=== PATIENT | female | born 1945 | race Caucasian/White ===

== ENCOUNTER 2018-08-14 06:53 | Inpatient (IN) | payer OTHER, MEDICARE ==
[2018-08-14] VITALS (20 sets, daily range): BP systolic 117–186; BP diastolic 59–100
[~2018-08-14] VITALS: Ht 160 cm; Wt 87.5 kg
[~2018-08-14 06:53] MED LIST: ALLP300T PO; C250T PO; CODE118S2 PO; COLC0.6T53 PO; CYAN500T44 PO; ERGO400C PO; FAMO20TA5 PO; FLUT50DI IH; GLIP5TAB13 PO; METF-380 PO; NTR.4SL SL; OMG1KC PO; PRD20T PO; SPRN25T GT
[2018-08-14] MEDS ORDERED: ALTEPLASE 100 MG/VIAL (ACTIVASE) IV ONE (07:04)
[2018-08-14 07:07] LABS: BASOPHILS % (AUTO) 0 % (0-10); EOSINOPHILS # (AUTO) 0.3 10^3/uL (0.0-0.3); EOSINOPHILS % (AUTO) 4 % (0-10); HEMATOCRIT 38 % (35-52); HEMOGLOBIN 12.7 G/DL (11.5-16.0); LYMPHOCYTES # (AUTO) 3.7 X 10^3 (1.0-4.0); LYMPHOCYTES % (AUTO) 42 % (12-44); MEAN CORPUSCULAR HEMOGLOBIN 30 PG (25-34); MEAN CORPUSCULAR HGB CONC 34 G/DL (32-36); MEAN CORPUSCULAR VOLUME 91 FL (80-99); MEAN PLATELET VOLUME 9.5 FL (7.4-10.4); MONOCYTES # (AUTO) 0.5 X 10^3 (0.0-1.0); MONOCYTES % (AUTO) 5 % (0-12); NEUTROPHILS # (AUTO) 4.4 X 10^3 (1.8-7.8); NEUTROPHILS % (AUTO) 49 % (42-75); PLATELET COUNT 208 10^3/uL (130-400); RED BLOOD COUNT 4.19 10^6/uL (4.35-5.85); RED CELL DISTRIBUTION WIDTH 14.1 % (10.0-14.5)
[2018-08-14 07:21] LABS: FIBRIN DEGRADATION PRODUCTS 0.29 UG/ML (0.00-0.49); INR 0.9 (0.8-1.4)
[2018-08-14] MEDS ORDERED: NS IV 1000 ML 1,000 ML IV ONE (07:21)
[2018-08-14 07:24] LABS: ALANINE AMINOTRANSFERASE 15 U/L (0-55); ALBUMIN 4.3 GM/DL (3.2-4.5); ALKALINE PHOSPHATASE 103 U/L (40-136); BILIRUBIN,TOTAL 0.6 MG/DL (0.1-1.0); BUN/CREATININE RATIO 14; CALCIUM 9.6 MG/DL (8.5-10.1); CARBON DIOXIDE 19 MMOL/L (21-32); CHLORIDE 105 MMOL/L (98-107); CREATININE SERUM 0.97 MG/DL (0.60-1.30); GFR ESTIMATED 56; GLUCOSE 167 MG/DL (70-105); POTASSIUM 4.1 MMOL/L (3.6-5.0); SODIUM 140 MMOL/L (135-145); TOTAL PROTEIN 6.9 GM/DL (6.4-8.2)
--- NOTE | 2018-08-14 07:35 | Diagnostic Imaging Report ---
PROCEDURE: CT head wo r/o stroke. TECHNIQUE: Multiple contiguous axial images were obtained through the brain without the use of intravenous contrast. INDICATION: Stroke. COMPARISON: None. FINDINGS: There is loss of the fisher-white junction in the anterior left temporal lobe. No intracranial hemorrhage, mass effect, hydrocephalus or extra-axial fluid collections. Osseous structures are intact. The visualized paranasal sinuses and mastoids are clear. IMPRESSION: 1. Loss of the fisher-white junction and low-attenuation changes in the anterior left temporal lobe representing acute or subacute infarct. This could be better evaluated with MRI. 2. No intracranial hemorrhage. Findings discussed with Dr. Benjamin Christian at 7:25 AM on 08/14/2018. Dictated by: Dictated on workstation # [id number]
[2018-08-14 07:39] LABS: BILIRUBIN,URINE NEGATIVE (NEGATIVE); CLARITY,URINE CLEAR; COLOR,URINE YELLOW; GLUCOSE, URINE (UA) NEGATIVE (NEGATIVE); KETONES,URINE NEGATIVE (NEGATIVE); LEUKOCYTE ESTERASE ,URINE NEGATIVE (NEGATIVE); NITRITE,URINE NEGATIVE (NEGATIVE); PH,URINE 5 (5-9); PROTEIN,URINE 2+ (NEGATIVE); UROBILINOGEN,URINE NORMAL (NORMAL)
--- NOTE | 2018-08-14 07:46 | ED Neurological Problem ---
General Chief Complaint: Neuro-Stroke Like Symptoms Stated Complaint: STROKE SYMPTOMS Nursing Triage Note: 0653 EMS CALLED STROKE PAGED 0645 HOUSE SUP NOTIFIED 0648 RT DAVID HERE [address] 0655 EMS HERE PATIENT WAS IN KITCHEN 530 A WHEN SHE YELLED FOR FAMILY UNABEL TO MOVE R ARM SPEECH SLURRED WITH DROOP OF R SIDE MOUTH TAKEN STRAIGHT TO CT BLOOD OBTAINED BY EMS SENT TO LAB Nursing Sepsis Screen: No Definite Risk Source: patient, family, EMS Exam Limitations: physical impairment History of Present Illness Date Seen by Provider: Aug 14, 2018 Time Seen by Provider: 06:55 Initial Comments Here by EMS with report of acute onset of right sided paralysis and right facial droop at 530 this morning. EMS was called afterwards. They did note those findings. No fall associated with this and no recent trauma. Progressively worsened and speech worsened. Patient anxious. On arrival, breathing without difficulty and sent stat to CT. Patient denies recent trauma or surgeries. Denies cancer or history of stroke or head bleed. She is able to answer questions but speech is slurred. Answers appropriate including month and year. Does report recent illness including cough. Family reports that she had moderate cough overnight last night. She is usually an early riser and it is not uncommon for her to be at this early in the morning and in fact is fairly typical. Timing/Duration: 1-3 hours Severity: severe Associated Symptoms: No fever/chills, No loss of consciousness, No numbness in legs/feet, No seizures; slurred speech, trouble walking, weakness Allergies and Home Medications Allergies Coded Allergies: diphenhydramine (Unverified Allergy, Unknown, 04/25/14) Home Medications Allopurinol 300 Mg Tablet, 2 TAB PO BID, (Reported) Ascorbic Acid 250 Mg Tab, 1,000 MG PO DAILY, (Reported) Colchicine 0.6 Mg Tablet, 0.6 MG PO NEEDED, (Reported) Famotidine 20 Mg Tablet, 1 EACH PO DAILY Prescribed by: JOCELYNN HAMMONDS on 04/25/141903 Fluticasone Propionate 50 Mcg Disk.w.dev, 1 PUFF IH BID, (Reported) Glipizide 5 Mg Tablet, 1 EACH PO DAILY, (Reported) Metformin Hcl 1,000 Mg Tablet, 1 EACH PO BID WITH MEALS, (Reported) Nitroglycerin 0.4 Mg Subl, 0.4 MG SL NEEDED, (Reported) [place] 3 Polyunsat Fatty Acids 1,000 Mg Cap, 2,000 MG PO DAILY, (Reported) Prednisone 20 Mg Tab, 20 MG PO BID Prescribed by: JOCELYNN HAMMONDS on 04/25/141903 Promethazine/Codeine 120 Ml Syrup, 5 ML PO Q 4 - 6 HRS PRN, (Reported) Spironolactone 25 Mg Tab, 50 MG GT DAILY, (Reported) Patient Home Medication List Home Medication List Reviewed: Yes Review of Systems Review of Systems Constitutional: see HPI; No chills, No fever Eyes: No Symptoms Reported Ears, Nose, Mouth, Throat: denies nose discharge, denies throat pain Respiratory: cough; No short of breath Cardiovascular: No chest pain, No edema Gastrointestinal: No abdominal pain, No nausea, No vomiting Genitourinary: no symptoms reported Musculoskeletal: muscle weakness; No neck pain Skin: no symptoms reported Psychiatric/Neurological: Unable to Move Lower Ext, Unable to Move Upper Ext, Weakness All Other Systems Reviewed Negative Unless Noted: Yes Past Xallspi-Kchudr-Kyxzoy Hx Past Med/Social Hx: Reviewed Nursing Past Med/Soc Hx Patient Social History Alcohol Use: Occasionally Uses Recreational Drug Use: No Smoking Status: Never a Smoker Recent Foreign Travel: No Contact w/Someone Who Travel: No Recent Infectious Disease Expo: No Past Medical History Surgeries: Yes (BALLOON IN ARTERY, CATARACT) Respiratory: Yes Asthma Cardiac: No Neurological: No Gastrointestinal: No Musculoskeletal: No Endocrine: No Cancer: No Family Medical History Reviewed Nursing Family Hx No Pertinent Family Hx Physical Exam Vital Signs Vital Signs - First Documented 08/14/18 08/14/18 06:53 08:14 Temp 98.9 Pulse 79 Resp 18 B/P (MAP) 155/62 (93) Pulse Ox 93 O2 Delivery Room Air O2 Flow Rate 2.00 Capillary Refill : Less Than 3 Seconds Height, Weight, BMI Height: 5'3" Weight: 193lbs. oz. 87.195907ou; 34.18 BMI Method:Stated General Appearance: WD/WN, mild distress HEENT: PERRL/EOMI, pharynx normal Neck: full range of motion, supple Respiratory: lungs clear, normal breath sounds Cardiovascular: regular rate, rhythm, no murmur Gastrointestinal: non tender, soft Extremities: non-tender, no pedal edema Neurologic/Psychiatric: alert, abnormal cerebellar tests, motor weakness Crainal Nerves: PERRL, abnormal speech, facial asymmetry, facial droop, facial weakness Motor/Sensory: weak motor strength RUE, weak motor strength RLE Skin: normal color, warm/dry Progress/Results/Core Measures Results/Orders Lab Results Laboratory Tests Test 08/14/18 06:57 08/14/18 07:16 Range/Units White Blood Count 9.0 4.3-11.0 10^3/uL Red Blood Count 4.19 L 4.35-5.85 10^6/uL Hemoglobin 12.7 11.5-16.0 G/DL Hematocrit 38 35-52 % Mean Corpuscular Volume 91 80-99 FL Mean Corpuscular Hemoglobin 30 25-34 PG Mean Corpuscular Hemoglobin Concent 34 32-36 G/DL Red Cell Distribution Width 14.1 10.0-14.5 % Platelet Count 208 130-400 10^3/uL Mean Platelet Volume 9.5 7.4-10.4 FL Neutrophils (%) (Auto) 49 42-75 % Lymphocytes (%) (Auto) 42 12-44 % Monocytes (%) (Auto) 5 0-12 % Eosinophils (%) (Auto) 4 0-10 % Basophils (%) (Auto) 0 0-10 % Neutrophils # (Auto) 4.4 1.8-7.8 X 10^3 Lymphocytes # (Auto) 3.7 1.0-4.0 X 10^3 Monocytes # (Auto) 0.5 0.0-1.0 X 10^3 Eosinophils # (Auto) 0.3 0.0-0.3 10^3/uL Basophils # (Auto) 0.0 0.0-0.1 10^3/uL Prothrombin Time 12.0 L 12.2-14.7 SEC INR Comment 0.9 0.8-1.4 Activated Partial Thromboplast Time 23 L 24-35 SEC D-Dimer 0.29 0.00-0.49 UG/ML Sodium Level 140 135-145 MMOL/L Potassium Level 4.1 3.6-5.0 MMOL/L Chloride Level 105 98-107 MMOL/L Carbon Dioxide Level 19 L 21-32 MMOL/L Anion Gap 16 H 5-14 MMOL/L Blood Urea Nitrogen 14 7-18 MG/DL Creatinine 0.97 0.60-1.30 MG/DL Estimat Glomerular Filtration Rate 56 BUN/Creatinine Ratio 14 Glucose Level 167 H 70-105 MG/DL Calcium Level 9.6 8.5-10.1 MG/DL Corrected Calcium 9.4 8.5-10.1 MG/DL Total Bilirubin 0.6 0.1-1.0 MG/DL Aspartate Amino Transf (AST/SGOT) 17 5-34 U/L Alanine Aminotransferase (ALT/SGPT) 15 0-55 U/L Alkaline Phosphatase 103 40-136 U/L Troponin I < 0.30 <0.30 NG/ML Total Protein 6.9 6.4-8.2 GM/DL Albumin 4.3 3.2-4.5 GM/DL Urine Color YELLOW Urine Clarity CLEAR Urine pH 5 5-9 Urine Specific [place] 1.015 L 1.016-1.022 Urine Protein 2+ H NEGATIVE Urine Glucose (UA) NEGATIVE NEGATIVE Urine Ketones NEGATIVE NEGATIVE Urine Nitrite NEGATIVE NEGATIVE Urine Bilirubin NEGATIVE NEGATIVE Urine Urobilinogen NORMAL NORMAL MG/DL Urine Leukocyte Esterase NEGATIVE NEGATIVE Urine RBC (Auto) NEGATIVE NEGATIVE Urine RBC NONE /HPF Urine WBC NONE /HPF Urine Squamous Epithelial Cells 0-2 /HPF Urine Crystals NONE /LPF Urine Bacteria NEGATIVE /HPF Urine Casts NONE /LPF Urine Mucus NEGATIVE /LPF Urine Culture Indicated NO My Orders Orders - BENJAMIN GONZALES MD Ct Head Wo-R/O Stroke (08/14/18 ) Cbc With Automated Diff (08/14/18 06:56) Protime With Inr (08/14/18 06:56) Partial Thromboplastin Time (08/14/18 06:56) Comprehensive Metabolic Panel (08/14/18 06:56) Fibrin Degradation Products (08/14/18 06:56) Troponin I (08/14/18 06:56) Ua Culture If Indicated (08/14/18 06:56) Chest 1 View, Ap/Pa Only (08/14/18 06:56) Catheter(Urinary) Insert & Ass 03,15 (08/14/18 06:56) Ekg Tracing (08/14/18 06:56) Nothing By Mouth (08/14/18 Lunch) Accucheck Stat ONCE (08/14/18 06:56) Saline Lock/Iv-Start (08/14/18 06:56) Saline Lock/Iv-Start (08/14/18 06:56) Vital Signs Stroke Patient Q15M (08/14/18 06:56) O2 (08/14/18 06:56) Intake & Output 06,14,22 (08/14/18 06:56) Monitor-Rhythm Ecg Trace Only (08/14/18 06:56) Dysphagia Screening Tool (08/14/18 06:56) Post Thrombolytic Adminstratio (08/14/18 06:56) Lipid Panel (08/15/18 06:00) I-Stat Bedside Testing (08/14/18 06:56) Alteplase (Activase) (Activase Injection (08/14/18 07:04) Ct Angio Head/Neck (08/14/18 07:21) Saline Lock/Iv-Start (08/14/18 07:21) Ns Iv 1000 Ml (Sodium Chloride 0.9%) (08/14/18 07:21) Iohexol Injection (Omnipaque 350 Mg/Ml 1 (08/14/18 08:15) Contrast Received (Contrast Received) (08/14/18 08:15) Ns (Ivpb) (Sodium Chloride 0.9%) (08/14/18 08:15) Medications Given in ED Current Medications Medications Dose Ordered Sig/Haylee Route Start Time Stop Time Status Last Admin Dose Admin Alteplase, Recombinant 100 mg STK-MED ONCE IV 08/14/18 07:04 08/14/18 07:07 DC 08/14/18 07:20 100 MG Iohexol 100 ml ONCE ONCE IV 08/14/18 08:15 08/14/18 08:16 DC 08/14/18 08:12 80 ML Sodium Chloride 250 ml ONCE ONCE IV 08/14/18 08:15 08/14/18 08:16 DC 08/14/18 08:12 80 ML Sodium Chloride 1,000 ml @ 0 mls/hr Q0M ONCE IV 08/14/18 07:21 08/14/18 07:22 DC 08/14/18 08:31 1,000 MLS/HR Vital Signs/I&O 08/14/18 08/14/18 08/14/18 08/14/18 06:53 08:14 08:19 09:09 Temp 98.9 Pulse 79 88 87 Resp 18 18 18 B/P (MAP) 155/62 (93) 156/64 172/81 Pulse Ox 93 98 98 O2 Delivery Room Air Nasal Cannula O2 Flow Rate 2.00 Blood Pressure Mean: 93 Progress Progress Note : Progress Note seen and evaluated on arrival by EMS. Rapidly sent to CT with physician at bedside. Stroke team was activated prior to arrival and met patient in the emergency department. Full stroke order set ordered. I-STAT done. Preliminary read shows no acute bleed. 0706: Patient back and department and second IV initiated with EKG and Gamboa placement and process. Patient's stroke scale 12 for inability to move right arm and leg as well as right facial droop and discoordination and dysarthria. See nursing note documentation for full scale. 0720: I have discussed with the patient's risk and benefits of TPA including the risk of . Patient has no contraindications to TPA at this point and patient has agreed to use. Gamboa has been placed and EKG was done. Bolus initiated at 0720 with drip initiated after for patient weighed of 180 pounds. 0724: I did discuss with the family all the findings and concerns and they agree with TPA as well. 0734: We will CTA of the head and neck and patient is in route to CT scanner now for this. Her speech is actually a little better at this point. Monitor patient. 0752: I did leave a message with the stroke team pending call back. 0755: Patient is back from CT angiogram. 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 We are still pending CT angiogram results. stroke team agrees with TPA given onset and findings. Monitor patient. 0933: CTA results noted. I did discuss the case with Dr. MARTIN and he accepts patient for admission, inpatient status to the ICU. Patient has findings similar to on arrival at this point. Intermittently will have some increased movement of the right arm and leg but that seems to have returned to how she was on arrival. I did discuss the findings concerns with the patient and family and they agree to admission here. No indication for transfer as there is no large vessel occlusion. Initial ECG Impression Date: Aug 14, 2018 Initial ECG Impression Time: 07:12 Initial ECG Rate: 83 Initial ECG Rhythm: Normal Sinus Comment Sinus rhythm with artifact. No evidence of ST elevation DC. Normal axis. No previous available for comparison. Interpreted by me. Diagnostic Imaging Diagonstic Imaging: CT Plain Films/CT/US/NM/MRI: head Comments VIA [place], [place] NAME: PADMINI VAZQUEZ [facility] REC#: [id number] PT STATUS: REG ER : 1945 PHYSICIAN: BENJAMIN GONZALES MD ADMIT DATE: 08/14/18/ER Draft Date of Exam:08/14/18 CT HEAD WO-R/O STROKE PROCEDURE: CT head wo r/o stroke. TECHNIQUE: Multiple contiguous axial images were obtained through the brain without the use of intravenous contrast. INDICATION: Stroke. COMPARISON: None. FINDINGS: There is loss of the fisher-white junction in the anterior left temporal lobe. No intracranial hemorrhage, mass effect, hydrocephalus or extra-axial fluid collections. Osseous structures are intact. The visualized paranasal sinuses and mastoids are clear. IMPRESSION: 1. Loss of the fisher-white junction and low-attenuation changes in the anterior left temporal lobe representing acute or subacute infarct. This could be better evaluated with MRI. 2. No intracranial hemorrhage. Findings discussed with Dr. Benjamin Gonzales at 7:25 AM on 08/14/2018. Dictated on workstation # [id number] Dict: 08/14/18721 Trans: 08/14/[address] [place] [address] [id number] Interpreted by: SIERRA SALMON MD Electronically signed by: Reviewed: Reviewed by Me, Discussed w/Radiologist Diagonstic Imaging: Xray Plain Films/CT/US/NM/MRI: chest Comments NAME: PADMINI VAZQUEZ [facility] REC#: [id number] PT STATUS: REG ER : 1945 PHYSICIAN: BENJAMIN GONZALES MD ADMIT DATE: 08/14/18/ER Draft Date of Exam:08/14/18 CHEST 1 VIEW, AP/PA ONLY EXAM: CHEST 1 VIEW, AP/PA ONLY INDICATION: Stroke. COMPARISON: Low lung volumes. FINDINGS: Perihilar atelectasis, greater on the left. No pleural effusion or pneumothorax. No acute osseous findings. Calcified aorta. IMPRESSION: Low lung volumes with perihilar atelectasis. No dense consolidation. Dictated on workstation # [id number] Dict: 08/14/18 0802 Trans: 08/14/18 0803 [facility] [id number] Interpreted by: SIERRA SALMON MD Electronically signed by: Reviewed: Reviewed by Me Diagonstic Imaging: CT Plain Films/CT/US/NM/MRI: head, other Comments VIA [facility] [address] [place], [place] NAME: PADMINI VAZQUEZ [facility] REC#: [id number] PT STATUS: REG ER : 1945 PHYSICIAN: BENJAMIN GONZALES MD ADMIT DATE: 08/14/18/ER Draft Date of Exam:08/14/18 CT ANGIO HEAD/NECK PROCEDURE: CT angiography of the head and CT angiography of the neck with and without contrast. TECHNIQUE: Contiguous noncontrast images were obtained from the skull base through the vertex. After intravenous contrast administration, helical CT angiography of the neck was performed. Source data was reformatted into multiple MIP projections. Delayed post contrast acquisition was also obtained. INDICATION: Stroke. COMPARISON: CT head without contrast performed earlier today. FINDINGS: Noncontrast head CT was not repeated. There is no abnormal enhancement on the delayed postcontrast head CT. There remains nonspecific low attenuation changes in the left anterior temporal lobe. No intracranial hemorrhage is evident on the contrast-enhanced exam. CTA demonstrates conventional aortic arch. No high-grade narrowing, aneurysm or dissection involving the basilar, bilateral vertebral, internal carotid, anterior cerebral, middle cerebral or posterior cerebral arteries. The anterior and left posterior communicating arteries are patent. Diminutive or absent right posterior communicating artery. The superior, anterior inferior and posterior inferior cerebellar artery origins are patent. The dural venous sinuses are grossly patent. Moderate spondylotic changes in the cervical spine. No high-grade spinal canal narrowing is evident on this non-intrathecal contrast exam. No fractures. Nonspecific 0.8 cm hypoenhancing nodule in the right thyroid lobe. The visualized soft tissues in the neck are otherwise unremarkable. The lung apices are clear. IMPRESSION: 1. No high-grade narrowing, aneurysm or dissection involving the major arteries in the head and neck. 2. Persistent low attenuation changes in the anterior left temporal lobe. There remains no evidence of intracranial hemorrhage on this contrast-enhanced exam. Dictated on workstation # [id number] Dict: 08/14/18901 Trans: 08/14/18916 [facility] [id number] Interpreted by: SIERRA SALMON MD Electronically signed by: Departure Communication (Admissions) Time/Spoke to Admitting Phy: 09:33 Impression Primary Impression: Cerebrovascular accident due to cerebral artery occlusion Disposition: ADMITTED INPATIENT Condition: Critical Admissions Decision to Admit Reason: Admit from ER (General) Decision to Admit/Date: Aug 14, 2018 Time/Decision to Admit Time: 09:33 Departure-Patient Inst. Referrals: JUAN CARLOS SANTIAGO MD (PCP/Family) Primary Care Physician BENJAMIN GONZALES MD Aug 14, 2018 07:46
[2018-08-14 07:48] LABS: BACTERIA,URINE NEGATIVE /HPF; SQUAMOUS EPITHELIAL CELL,UR 0-2 /HPF
--- OUTSIDE RECORDS SUMMARY | 2018-08-14 08:01 | XMS REPORT | Continuity of Care Document ---
Author Author [facility] Organization [facility] Address Unknown Phone Unavailable Allergies Active Description Code Type Severity Reaction Onset Reported/Identified Relationship to Patient Clinical Status Yes ALBUTEROL SULFATE UNKNOWN UNKNOWN Yes ASPIRIN UNKNOWN UNKNOWN Yes BENADRYL UNKNOWN DERMATOLOGICAL - CINTIA Yes IBUPROFEN UNKNOWN UNKNOWN Yes KEFLEX UNKNOWN UNKNOWN Yes PENICILLINS UNKNOWN UNKNOWN Yes PLAVIX UNKNOWN UNKNOWN Yes SULFACETAMIDE SODIUM UNKNOWN UNKNOWN Yes VYTORIN 10-10 UNKNOWN UNKNOWN Yes ZETIA UNKNOWN UNKNOWN Yes ZITHROMAX UNKNOWN UNKNOWN Medications There is no data. Problems Date Dx Coded Attending Type Code Diagnosis Diagnosed By 11/30/2017 RONNIE RAMAN 401.0 MALIGNANT ESSENTIAL HYPERTENSION 11/30/2017 RONNIE RAMAN I10 ESSENTIAL (PRIMARY) HYPERTENSION 11/30/2017 RONNIE RAMAN W 250.00 DIABETES MELLITUS WITHOUT MENTION OF COMPLICATION, TYPE II OR UNSPECIFIED TYPE , NOT STATED UNCONTROLLED 11/30/2017 RONNIE RAMAN 401.0 MALIGNANT ESSENTIAL HYPERTENSION 11/30/2017 RONNIE RAMAN E11.9 TYPE 2 DIABETES MELLITUS WITHOUT COMPLICATIONS 11/30/2017 RONNIE RAMAN I10 ESSENTIAL (PRIMARY) HYPERTENSION 11/30/2017 RONNIE RAMAN W 250.00 DIABETES MELLITUS WITHOUT MENTION OF COMPLICATION, TYPE II OR UNSPECIFIED TYPE , NOT STATED UNCONTROLLED 11/30/2017 RONNIE RAMAN 401.0 MALIGNANT ESSENTIAL HYPERTENSION 11/30/2017 RONNIE RAMAN E11.9 TYPE 2 DIABETES MELLITUS WITHOUT COMPLICATIONS 11/30/2017 RONNIE RAMAN I10 ESSENTIAL (PRIMARY) HYPERTENSION 06/05/2018 RONNIE RAMAN W 250.00 DIABETES MELLITUS WITHOUT MENTION OF COMPLICATION, TYPE II OR UNSPECIFIED TYPE , NOT STATED UNCONTROLLED 06/05/2018 RONNIE RAMAN E11.9 TYPE 2 DIABETES MELLITUS WITHOUT COMPLICATIONS 06/05/2018 RONNIE RAMAN 250.00 DIABETES MELLITUS WITHOUT MENTION OF COMPLICATION, TYPE II OR UNSPECIFIED TYPE , NOT STATED UNCONTROLLED 06/05/2018 RONNIE RAMAN E11.9 TYPE 2 DIABETES MELLITUS WITHOUT COMPLICATIONS 06/05/2018 RONNIE RAMAN 250.00 DIABETES MELLITUS WITHOUT MENTION OF COMPLICATION, TYPE II OR UNSPECIFIED TYPE , NOT STATED UNCONTROLLED 06/05/2018 RONNIE RAMAN 401.0 MALIGNANT ESSENTIAL HYPERTENSION 06/05/2018 RONNIE RAMAN E11.9 TYPE 2 DIABETES MELLITUS WITHOUT COMPLICATIONS 06/05/2018 RONNIE RAMAN I10 ESSENTIAL (PRIMARY) HYPERTENSION 06/05/2018 RONNIE RAMAN 250.00 DIABETES MELLITUS WITHOUT MENTION OF COMPLICATION, TYPE II OR UNSPECIFIED TYPE , NOT STATED UNCONTROLLED 06/05/2018 RONNIE RAMAN 401.0 MALIGNANT ESSENTIAL HYPERTENSION 06/05/2018 RONNIE RAMAN E11.9 TYPE 2 DIABETES MELLITUS WITHOUT COMPLICATIONS 06/05/2018 RONNIE RAMAN I10 ESSENTIAL (PRIMARY) HYPERTENSION Procedures There is no data. Results Test Result Range Thyroid Stimulating Hormone - 09/12/16 08:21 TSH 1.78 mIU/mL 0.32-5.00 CBC with Auto Diff - 09/12/16 08:27 Baso% 0.20 % 0.00-2.50 Eos 0.2 K/uL 0.0-0.7 Eos% 2.1 % 0.0-7.0 Hct 38.7 % 36.0-46.0 Hgb 13.0 g/dL 13.0-15.0 Lym 3.47 K/uL 0.60-3.40 Lym% 43.1 % 10.0-50.0 MCH 29.7 pg 27.0-31.0 MCHC 33.6 g/dL 32.0-36.0 MCV 88.4 fL 80.0-97.0 Churchill% 6.1 % 0.0-12.0 MPV 9.8 fL 7.4-10.0 Bryn% 48.5 % 37.0-80.0 Plt 194 K/uL 150-400 RBC 4.38 M/uL 3.60-5.00 RDW 13.5 % 11.6-14.8 WBC 8.06 K/uL 5.00-10.00 Bryn 3.91 K/uL 2.00-6.90 Churchill 0.5 K/uL 0.0-0.9 Baso 0.0 K/uL 0.0-0.2 Microalbumin - 12/07/16 14:20 Microalb 73.0 mg/L 0.0-20.0 Uric Acid - 06/05/17 16:00 Uric Acid 5.1 mg/dL 2.6-7.2 Lipid Panel - 08/24/17 15:00 C/HDL 6.5 3.7-6.7 Cholesterol 252 mg/dL 100-240 HDL 39 mg/dL 30-85 LDL-Calculated 114 mg/dL 0-100 Trig 497 mg/dL 35-160 VLDL 99 mg/dL 0-42 Hemoglobin A1C - 11/30/17 13:27 % A1C 7.90 % 5.40-6.60 AvGlu 205 mg/dL 70-110 Hemoglobin A1C - 03/01/18 08:40 % A1C 6.70 % 5.40-6.60 AvGlu 162 mg/dL 70-110 Comprehensive Metabolic Panel - 06/05/18 13:45 Albumin 4.2 g/dL 3.6-5.1 ALP 93 U/L 35-130 ALT 14 U/L 6-45 Anion Gap 15 6-14 AST 14 U/L 2-40 BUN 15 mg/dL 5-25 Calcium 9.5 mg/dL 8.3-10.4 Chloride 113 mmol/L 95-114 CO2 19 mEq/L 22-33 Creat 0.89 mg/dL 0.50-1.50 eGFR 62 mL/min/1.73m2 >59 Globulin 2.2 g/dL 2.3-3.5 Glucose 63 mg/dL 70-110 Osmo 294 280-295 Potassium 3.9 mmol/L 3.5-5.3 Sodium 143 mmol/L 134-148 TBil 0.4 mg/dL 0.2-1.2 TP 6.4 g/dL 6.0-8.3 Hemoglobin A1C - 06/05/18 13:45 % A1C 5.80 % 5.40-6.60 AvGlu 130 mg/dL 70-110 Encounters ACCT No. Visit Date/Time Discharge Status Pt. Type Provider Facility Loc./Unit Complaint [id number] 04/25/2014 18:14:00 04/25/2014 19:13:00 DIS Emergency [id number] 06/05/2018 15:05:00 06/05/2018 23:59:00 DIS Outpatient DANISHA RONNIE [id number] 03/01/2018 14:20:00 03/01/2018 23:59:00 DIS Outpatient DANISHARONNIE [id number] 11/30/2017 13:21:00 11/30/2017 23:59:00 DIS Outpatient RAMANRONNIE [id number] 08/24/2017 15:00:00 08/24/2017 23:59:00 DIS Outpatient RAMANRONNIE [id number] 06/05/2017 07:27:00 06/05/2017 23:59:00 DIS Outpatient Coleman Major [id number] 12/07/2016 14:20:00 12/07/2016 23:59:00 DIS Outpatient Coleman Major [id number] 09/12/2016 08:20:00 09/12/2016 23:59:00 DIS Outpatient Coleman Major
--- NOTE | 2018-08-14 08:04 | Diagnostic Imaging Report ---
EXAM: CHEST 1 VIEW, AP/PA ONLY INDICATION: Stroke. COMPARISON: Low lung volumes. FINDINGS: Perihilar atelectasis, greater on the left. No pleural effusion or pneumothorax. No acute osseous findings. Calcified aorta. IMPRESSION: Low lung volumes with perihilar atelectasis. No dense consolidation. Dictated by: Dictated on workstation # [id number]
[2018-08-14] MEDS ORDERED: IOHEXOL 350 MG/ML 100 ML (OMNIPAQUE 350) VIAL IV ONE (08:15)
[2018-08-14] MEDS ORDERED: NS 250 ML (IVPB) BAG IV ONE (08:15)
[2018-08-14] MEDS ORDERED: RECEIVED CONTRAST (Hold Metformin) IV SCH (08:15)
--- NOTE | 2018-08-14 09:17 | Diagnostic Imaging Report ---
PROCEDURE: CT angiography of the head and CT angiography of the neck with and without contrast. TECHNIQUE: Contiguous noncontrast images were obtained from the skull base through the vertex. After intravenous contrast administration, helical CT angiography of the neck was performed. Source data was reformatted into multiple MIP projections. Delayed post contrast acquisition was also obtained. INDICATION: Stroke. COMPARISON: CT head without contrast performed earlier today. FINDINGS: Noncontrast head CT was not repeated. There is no abnormal enhancement on the delayed postcontrast head CT. There remains nonspecific low attenuation changes in the left anterior temporal lobe. No intracranial hemorrhage is evident on the contrast-enhanced exam. CTA demonstrates conventional aortic arch. No high-grade narrowing, aneurysm or dissection involving the basilar, bilateral vertebral, internal carotid, anterior cerebral, middle cerebral or posterior cerebral arteries. The anterior and left posterior communicating arteries are patent. Diminutive or absent right posterior communicating artery. The superior, anterior inferior and posterior inferior cerebellar artery origins are patent. The dural venous sinuses are grossly patent. Moderate spondylotic changes in the cervical spine. No high-grade spinal canal narrowing is evident on this non-intrathecal contrast exam. No fractures. Nonspecific 0.8 cm hypoenhancing nodule in the right thyroid lobe. The visualized soft tissues in the neck are otherwise unremarkable. The lung apices are clear. IMPRESSION: 1. No high-grade narrowing, aneurysm or dissection involving the major arteries in the head and neck. 2. Persistent low attenuation changes in the anterior left temporal lobe. There remains no evidence of intracranial hemorrhage on this contrast-enhanced exam. Dictated by: Dictated on workstation # [id number]
--- OUTSIDE RECORDS SUMMARY | 2018-08-14 10:13 | XMS REPORT | Continuity of Care Document ---
Author Author [facility] Organization [facility] Address Unknown Phone Unavailable Allergies Active Description [...] 33.6 g/dL 32.0-36.0 MCV 88.4 fL 80.0-97.0 Gilliam% 6.1 % 0.0-12.0 MPV 9.8 fL 7.4-10.0 Bryn% 48.5 % 37.0-80.0 Plt 194 K/uL 150-400 RBC 4.38 M/uL 3.60-5.00 RDW 13.5 % 11.6-14.8 WBC 8.06 K/uL 5.00-10.00 Bryn 3.91 K/uL 2.00-6.90 Gilliam 0.5 K/uL 0.0-0.9 Baso 0.0 K/uL 0.0-0.2 [...] Status Pt. Type Provider Facility Loc./Unit Complaint [id number] 04/25/2014 18:14:00 04/25/2014 19:13:00 DIS Emergency [id number] 06/05/2018 15:05:00 06/05/2018 23:59:00 DIS Outpatient DANISHA RONNIE [id number] 03/01/2018 14:20:00 03/01/2018 23:59:00 DIS Outpatient DANISHARONNIE [id number] 11/30/2017 13:21:00 11/30/2017 23:59:00 DIS Outpatient RAMANRONNIE [id number] 08/24/2017 15:00:00 08/24/2017 23:59:00 DIS Outpatient RAMANRONNIE [id number] 06/05/2017 07:27:00 06/05/2017 23:59:00 DIS Outpatient Coleman Major [id number] 12/07/2016 14:20:00 12/07/2016 23:59:00 DIS Outpatient Coleman Major [id number] 09/12/2016 08:20:00 09/12/2016 23:59:00 DIS Outpatient Coleman Major
[2018-08-14] MEDS ORDERED: CHOL10007 PO (10:43)
[2018-08-14] MEDS ORDERED: SPIR50TA4 PO (10:43)
[2018-08-14] MEDS ORDERED: OMG1KC PO (10:43)
[2018-08-14] MEDS ORDERED: NITR0.4T42 SL (10:43)
[2018-08-14] MEDS ORDERED: CYAN100088 PO (10:43)
[2018-08-14] MEDS ORDERED: ALLO300T2 PO (10:43)
[2018-08-14] MEDS ORDERED: GLIM2TAB PO (10:43)
[2018-08-14] MEDS ORDERED: LISI-556 PO (10:43)
[2018-08-14] MEDS ORDERED: METF-399 PO (10:43)
[2018-08-14] MEDS ORDERED: ASCO500T7 PO (10:43)
[2018-08-14] MEDS ORDERED: MONT10TA21 PO (10:44)
[2018-08-14] MEDS ORDERED: FLUT9.9S NS (10:44)
[2018-08-14] MEDS ORDERED: ONDANSETRON 4 MG/2 ML (SDV) Z0FRAN IV PRN (10:45)
[2018-08-14] MEDS ORDERED: COLC0.6T56 PO (10:59)
--- NOTE | 2018-08-14 11:56 | ST Dysphagia Evaluation ---
Speech Evaluation-General Medical Diagnosis CVA Onset Date: Aug 14, 2018 Therapy Diagnosis Therapy Diagnosis: Oropharyngeal Stage Precautions Precautions: Fall, Aspiration Precautions/Isolations: Fall Prevention, Standard Precautions Referral Referring Physician: Davonte May M.D. Medical History Reviewed History: Yes Speech PLF/Current-Dysphagia Prior Level of Function Patient lived at home with family. She was independent with all daily needs. Subjective Patient was pleasant and cooperative. Oral Motor Skills Dentition: Natural Denture Type: Full- Upper Current Food Consistancy: Mechanical Soft, Thin Liquids Ability to Follow Directions: Good Oral Expression Ability: Moderate Impairment Voice Voice Phonatory-Based Quality: Weak Voice Pitch: Mildly Low Voice Loudness: Mildly Soft/Quiet Face Facial Symmetry: Asymmetrical Patient has significant drooping/weakness on the right side. Oral-Facial Assessment Oral-Facial Dentition: Normal Labial Seal Description: Reduced ROM, Droops Right, Weak Smile: Droops Right, Poor Coordination Puff Cheeks: Reduced Strength Lingual Protrusion: Abnormal Lingual ROM: Abnormal Lingual Strength: Abnormal Gag Reflex Response: Normal Volitional Dry Swallow: Yes Dysphagia Evaluation Consistencies Presented: Regular, Thin Liquid, Mechanical Soft, Pureed Oral Phase: Oral Residue, Right Pocketing, Reduced Oral Transit Pharyngeal Phase: Decreased A/P Bolus Transit, Multiple Swallow Attempts, Delayed Swallow Patient takes her time with oral transit due to weakness and decreased ROM on the right side. Funct. Velo/Pharyngeal Symptom: Clears Throat Dietary Recommendations: Mechanical Soft Liquid Recommendations: Thin Swallowing Precautions: Alternate Liquids/Solids, Double Swallow, Decreased Bolus 1/2 Tsp, Liquids from Cup, Small Bites and Sips, Sitting Upright 90 Degrees, Sitting 90 Degrees 30 Post Intake, Right Tongue Sweep Dysphagia Evaluation Summary Patient presents with dysphagia at this time secondary to requirement of a modified diet. Patient requires small bites and sips for easier bolus management. Patient demonstrated increased mastication, delayed oral transit, tongue pumping in order to initiate the swallow, decreased laryngeal excursion of the pharyngeal musculature, globus sensation and gurgly phonation following presentations of liquid. Barriers to Learning Patient is a new CVA patient and requires increased time for processing of information. Speech Short Term Goals Short Term Goals Short Term Goals 1) The patient will follow compensatory strategies for safe PO intake, reduce globus sensation and increase swallow onset. 2) The patient will tolerate mechanical soft diet with no s/s of aspiration/ penetration. Speech Soda Tester Goals Soda Tester Goals The patient will maintain adequate nutrition/hydration via safe, effective swallow function. Speech-Plan Patient/Family Goals Patient/Family Goals: Patient will return home with family when she is able to.. Treatment Plan Speech Therapy Treatment Plan: Continue Plan of Care Patient completed Bedside Dysphagia Evaluation without difficulty. Frequency: 5 times per week Estimated Hrs Per Day: .5 hour per day Rehab Potential: Good Barriers to Learning: Patient is a new CVA patient and requires increased processing time for directions. Pt/Family Agrees to Plan: Yes Safety Risks/Education Teaching Recipient: Patient, Family, Significant Other Teaching Methods: Discussion Response to Teaching: Verbalize Understanding Education Topics Provided: Compensatory strategies: Sitting up as close to 90 degrees as possible during oral intake and for 20-30 minutes post intake, small sips/bites, alternating food:drink of 2-3:1 and tongue sweep of the right buccal area. Time Speech Therapy Time In: 11:30 Speech Therapy Time Out: 11:50 Total Billed Time: 20 Billed Treatment Time 1LETICIA BETHANIA ST Aug 14, 2018 11:56
[2018-08-14] MEDS: NS IV 1000 ML 1,000 ML IV SCH (12:32)
--- NOTE | 2018-08-14 15:04 | Physical Therapy Evaluation ---
PT Evaluation-General Medical Diagnosis Admission Date Aug 14, 2018 at 09:50 Medical Diagnosis: CVA Onset Date: Aug 14, 2018 Therapy Diagnosis Therapy Diagnosis: Right side neglect, Right side weakness Height/Weight Height (Feet): 5 Height (Inches): 3.00 Weight (Pounds): 193 Weight (Ounces): 0.0 Precautions Precautions/Isolations: Fall Prevention, Standard Precautions Weight Bear Status Right Lower Extremity: Right Full Weight Bearing Left Lower Extremity: Left Full Weight Bearing Referral Physician: Davonte May MD Reason for Referral: Evaluation/Treatment Medical History Current History Patient experienced stroke like symptoms and alerted family at 5 in the morning of 08/14/18. EMS brought Pt to hospital where TPA was delivered. Reviewed History: Yes Social History Home: Multilevel Current Living Status: Spouse Entry Into Home: Level Entry PT Steps Into Home: 0 PT Steps Inside Home: 10 Prior/Core FIM Prior Level of Function Functional [place] Measure 0=Not Assessed/NA 4=Minimal Assistance 1=Total Assistance 5=Supervision or Setup 2=Maximal Assistance 6=Modified [place] 3=Moderate Assistance 7=Complete [place] IRFPAI Quality Coding Scale 6 Independent with activity with or without an assistive device 5 Patient requires set up or clean up by helper. Patient completes activity by themselves 4 Supervision or touching assist (CGA). Lane provide cues , steadying assist 3 The helper provides less than half the effort to complete the activity 2 The helper provides more than half the effort to complete the activity 1 Dependent. The helper does all the effort to complete an activity 7 Patient refused to complete or attempt activity 9 The patient did not perform the activity before the current illness or injury 88 Not attempted due to Medical conditions or safety concerns Functional Abilities and Goals 3. Independent: Patient completed the activities by him/herself, with or without an assistive device, with no assistance from a helper. 2. Needed Some Help: Patient needed partial assistance from another person to complete activities. 1. Dependent: A helper completed the activities for the patient. 8. Unknown: 9. Not Applicable: Bed Mobility: 7 Transfers (B,C,W/C) (FIM): 7 Gait: 7 Stairs: 7 Indoor Mobility (Ambulation): Independent Stairs: Independent Prior Devices Use: None PT Evaluation-Current Subjective Pt asleep in room with family when PT arrived. Pt agreed to evaluation by PT. Pain Numeric Pain Scale: 0-No Pain Location: No Pain Reported Objective Patient Orientation: Mumbles, Normal For Age Problem Solving: Poor Attachments: [place] Catheter, IV ROM/Strength ROM Upper Extremities WNL ROM Lower Extremities WNL Strength Upper Extremities WNL for L UE, R UE is flaccid Strength Lower Extremities L LE 4/5 R LE is completely flaccid Integumentary/Posture Bladder Incontinence: Gamboa Cath Neuromuscular (Tone, Coordination, Reflexes) flaccid right side with neglect Sensory Vision: Unable to Assess Hearing: Functional Sensation Left Upper Extremity: Intact Sensation Right Lower Extremit: Impaired (Unable to get proper dermatome screen due to patient exhaustion. Patients sensation will be assessed at a future time. ) Sensation Left Lower Extremity: Intact Transfers Functional [place] Measure 0=Not Assessed/NA 4=Minimal Assistance 1=Total Assistance 5=Supervision or Setup 2=Maximal Assistance 6=Modified [place] 3=Moderate Assistance 7=Complete [place] Transfers (B, C, W/C) (FIM): 1 Scootin Rollin Supine to/from Sit: 1 dependent with all x 2 Balance Sitting Static: Poor Sitting Dynamic: Poor Assessment/Needs Patient was dependent assist x 2 in transferring from supine/EOB. Patient needed max assist from therapist for sitting balance throughout evaluation. Patient has 4/5 strength for L LE but is flaccid for strength on the R side of the body. Patient was dependent assist x 2 in transfer back to supine prior to PT leaving room. Pt left with call light and belongs when PT exited room. Rehab Potential: Guarded PT Short Term Goals Short Term Goals Time Frame: Aug 17, 2018 Transfers (B,C,W/C) (FIM): 3 Gait (FIM): 1 Distance (FIM): 1=up to 49 ft Gait Distance Comment: 5' Gait Level of Assist: 2 Gait Assistive Device: FWW PT Payroll Auditor Goals Payroll Auditor Goals PT Senior Care Goals Time Frame: Aug 24, 2018 Transfers (B,C,W/C) (FIM): 4 Gait (FIM): 2 Gait distance (FIM): 9=587-93 ft Distance: 50' Gait Level of Assist: 4 Gait Assistive Device: FWW PT Plan Problem List Problem List: Activity Tolerance, Functional Strength, Safety, Balance, Gait, Transfer, Bed Mobility, ROM Treatment/Plan Treatment Plan: Continue Plan of Care Treatment Plan: Bed Mobility, Education, Functional Activity Mary, Functional Strength, Gait, Safety, Therapeutic Exercise, Transfers Treatment Duration: Aug 24, 2018 Frequency: 11 times per week Estimated Hrs Per Day: .5 hour per day Patient and/or Family Agrees t: Yes Discharge Recommendations Therapy D/C Recommendations: Acute Rehab Time/GCodes Time In: 1435 Time Out: 1455 Total Billed Treatment Time: 20 Total Billed Treatment 1 Visit EVModC - 20' MARY HAUSER PT Aug 14, 2018 15:04
--- NOTE | 2018-08-14 15:33 | History & Physical-Hospitalist ---
History of Present Illness HPI/Chief Complaint The patient is rather remarkably impaired with regard to speech. She arrived at the emergency room early this morning with a history of being up at about 0 530 cleaning house. She noted the acute onset of right-sided weakness. It became clear that her speech was involved as well she was brought to the emergency room. She was well within the window. Some difficulties were encountered with our outsource sitting of CT reports. Dr. Christian concluded there was no evidence of bleeding and TPA was administered. An area on the scans suggested a subacute injury. She is now in the ICU bed. She is alert and her speech is quite garbled. Source: patient Exam Limitations: physical impairment Date Seen 08/14/18 Time Seen by a Provider: 15:28 Attending Physician Davonte Martin MD PCP Coleman Major MD Referring Physician Date of Admission Aug 14, 2018 at 09:50 Home Medications & Allergies Home Medications Reviewed patient Home Medication Reconciliation performed by pharmacy medication reconciliations engineering lab technician and/or nursing. Patients Allergies have been reviewed. Allergies Allergies Coded Allergies diphenhydramine (Unverified Allergy, Unknown, 04/25/14) Past Fshblxq-Vgrmxc-Hoyklp Hx Past Med/Social Hx: Reviewed Nursing Past Med/Soc Hx Patient Social History Alcohol Use: Denies Use Recreational Drug Use: No Smoking Status: Never a Smoker Physical Abuse Screen: No Sexual Abuse: No Recent Foreign Travel: No Contact w/other who traveled: No Recent Hopitalizations: No Recent Infectious Disease Expo: No Immunizations Up To Date Date of Pneumonia Vaccine: Jun 27, 2018 Date of Influenza Vaccine: Jun 27, 2018 Seasonal Allergies Seasonal Allergies: Yes Past Medical History Currently Using CPAP: No Currently Using BIPAP: No Gastrointestinal: Abdominal Hernia Are Your Blood Sugars Over 250: No HEENT: Cataract Hearing Impairment: Denies History of Blood Disorders: No Family History Reviewed Nursing Family Hx No Pertinent Family Hx Review of Systems Constitutional: see HPI, other (speech limitations make review of systems impossible) Physical Exam Physical Exam Vital Signs Vital Signs - First Documented 08/14/18 08/14/18 06:53 08:14 Temp 98.9 Pulse 79 Resp 18 B/P (MAP) 155/62 (93) Pulse Ox 93 O2 Delivery Room Air O2 Flow Rate 2.00 Capillary Refill : Less Than 3 Seconds Height, Weight, BMI Height: 5'3.00" Weight: 193lbs. 0.0oz. [id number]; 34.2 BMI Method:Stated General Appearance: Other Eyes: Bilateral Eye Normal Inspection HEENT: PERRL/EOMI Neck: Normal Inspection Respiratory: Chest Non Tender, Lungs Clear, Normal Breath Sounds, No Accessory Muscle Use, No Respiratory Distress Cardiovascular: Regular Rate, Rhythm, No Edema, No Gallop, No JVD, No Murmur, Normal Peripheral Pulses Gastrointestinal: Normal Bowel Sounds, No Organomegaly, No Pulsatile Mass, Non Tender, Soft Back: Normal Inspection Extremity: Normal Capillary Refill, Normal Inspection Neurologic/Psychiatric: Alert, Motor Weakness Skin: Normal Color, Warm/Dry Lymphatic: No Adenopathy Comments There is an obvious right facial droop with effacement of the nasolabial fold. Extrusion of tongue is right of midline. The right arm is flaccid and no crepitus elicited. The left is normal. Extremities show external rotation of the right lower extremity and weak ability to flex at the knee. Straight leg lift is normal on the left Results Results/Procedures Labs Laboratory Tests 08/14/18 06:57 Patient resulted labs reviewed. 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
--- NOTE | 2018-08-14 15:58 | Occupational Therapy Eval ---
OT Evaluation-General/PLF Medical Diagnosis Admission Date Aug 14, 2018 at 09:50 Medical Diagnosis: CVA Onset Date: Aug 14, 2018 Therapy Diagnosis Therapy Diagnosis: Right sided weakness Height/Weight Height (Feet): 5 Height (Inches): 3.00 Weight (Pounds): 193 Weight (Ounces): 0.0 Precautions Precautions/Isolations: Fall Prevention, Standard Precautions Weight Bear Status Weight Bearing Restriction: Weight Bearing/Tolerated Referral Physician: Davonte May MD Referral Reason: Activity Tolerance, Self Care, Evaluation/Treatment, Strengthening/ROM Medical History Additional Medical History Cataract, 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 in kitchen this morning at home and began to have right sided weakness with right facial droop and slurred speech. Came to ER and received TPA. Reviewed History: Yes Social History Home: Multilevel Current Living Status: Spouse Entry Into Home: Stairs With Railing Steps Into Home: 2 Steps Inside Home: 10 ADL-Prior Level of Function Functional [place] Measure 0=Not Assessed/NA 4=Minimal Assistance 1=Total Assistance 5=Supervision or Setup 2=Maximal Assistance 6=Modified [place] 3=Moderate Assistance 7=Complete [place] IRFPAI Quality Coding Scale 6 Independent with activity with or without an assistive device 5 Patient requires set up or clean up by helper. Patient completes activity by themselves 4 Supervision or touching assist (CGA). Coleman provide cues , steadying assist 3 The helper provides less than half the effort to complete the activity 2 The helper provides more than half the effort to complete the activity 1 Dependent. The helper does all the effort to complete an activity 7 Patient refused to complete or attempt activity 9 The patient did not perform the activity before the current illness or injury 88 Not attempted due to Medical conditions or safety concerns Functional Abilities and Goals 3. Independent: Patient completed the activities by him/herself, with or without an assistive device, with no assistance from a helper. 2. Needed Some Help: Patient needed partial assistance from another person to complete activities. 1. Dependent: A helper completed the activities for the patient. 8. Unknown: 9. Not Applicable: ADL PLOF Comments Pt. was independent with daily tasks. 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 Self Care: Independent Functional Cognition: Independent DME/Equipment: Tub/Shower Occupation: Pt. states that she does not work. Drive Self: No OT Current Status Subjective No pain reported. Appearance Pt. in bed. Agrees to work with OT. Mental Status/Objective Patient Orientation: Person, Place Attachments: [place] Catheter, IV, Telemetry Current Hand Dominance: Right Upper Extremity ROM Right- Pt. has no movement in right UE. Left UE- WFL Upper Extremity Sensation Pt. is able to report that she feels sensation in her right UE. ADL-Treatment Functional [place] Measure 0=Not Assessed/NA 4=Minimal Assistance 1=Total Assistance 5=Supervision or Setup 2=Maximal Assistance 6=Modified [place] 3=Moderate Assistance 7=Complete [place] IRFPAI Quality Coding Scale 6 Independent with activity with or without an assistive device 5 Patient requires set up or clean up by helper. Patient completes activity by themselves 4 Supervision or touching assist (CGA). Coleman provide cues , steadying assist 3 The helper provides less than half the effort to complete the activity 2 The helper provides more than half the effort to complete the activity 1 Dependent. The helper does all the effort to complete an activity 7 Patient refused to complete or attempt activity 9 The patient did not perform the activity before the current illness or injury 88 Not attempted due to Medical conditions or safety concerns Transfers (B, C, W/C) (FIM): 1 (See note below.) Other Treatments Pt. agrees to treatment. Transfers supine-sit with max x 2. Pt. sat EOB with min assist approximately 20 minutes. Pt. attempted to track OT's finger but unable to track past midline toward right side. No active movement noted in right UE. Pt. does attempt to communicate, but speech is garbled. OT asks pt. if she would like to wash her face. Pt. states that she would. OT gives pt. warm washcloth in left hand. Pt. attempts to wash face but only gets it partially washed. OT washes it thoroughly for her. Pt. indicates that she is tired. Pt. transfers sit-supine with max x 2 and dependent assist to position self in bed. Pt. is made comfortable and all needs are met in room. Education OT Patient Education: Correct positioning, Purpose of tx/functional activities , Reviewed precautions, Rehab process, Transfer techniques Teaching Recipient: Patient, Family Teaching Methods: Demonstration, Discussion Response to Teaching: Verbalize Understanding, Return Demonstration OT Short Term Goals Short Term Goals Time Frame: Aug 28, 2018 Eating(FIM): 3 Grooming(FIM): 3 Bathing(FIM): 3 Upper Body Dressing(FIM): 3 Lower Body Dressing(FIM): 3 Toileting(FIM): 4 Transfers (B,C,W/C) (FIM): 4 Toilet/Commode Transfer(FIM): 4 Shower Transfer(FIM): 3 Additional Short Term Goals: 1-Demonstrate ADL Tasks, 2-Verbalize Understanding , 3-ImproveStrength/Mary 1=Demonstrate adherence to instructed precautions during ADL tasks. 2=Patient will verbalize/demonstrate understanding of assistive devices/ modifications for ADL. 3=Patient will improve strength/tolerance for activity to enable patient to perform ADL's. OT Scale Expert Goals Scale Expert Goals Time Frame: Sep 11, 2018 Eating (FIM): 5 Grooming(FIM): 5 Bathing(FIM): 4 Upper Body Dressing(FIM): 5 Lower Body Dressing(FIM): 4 Toileting(FIM): 5 Transfers (B,C,W/C) (FIM): 5 Toilet/Commode Transfer(FIM): 5 Shower Transfer(FIM): 4 Additional Goals: 1-Demonstrate ADL Tasks, 2-Verbalize Understanding, 3- ImproveStrength/Mary 1=Demonstrate adherence to instructed precautions during ADL tasks. 2=Patient will verbalize/demonstrate understanding of assistive devices/ modifications for ADL. 3=Patient will improve strength/tolerance for activity to enable patient to perform ADL's. OT Education/Plan Problem List/Assessment Assessment: Decreased Activ Tolerance, Decreased UE Strength, Dependent Transfers, Impaired Bed Mobility, Impaired Coordination, Impaired Funct Balance , Impaired I ADL's, Impaired Self-Care Skills, Restricted Funct UE ROM Discharge Recommendations Plan/Recommendations: Continue POC Therapy D/C Recommendations: Acute Rehab Comment Discharge destination and equipment to be determined. Treatment Plan/Plan of Care Treatment,Training & Education: Yes Patient would benefit from OT for education, treatment and training to promote independence in ADL's, mobility, safety and/or upper extremity function for ADL' s. Plan of Care: ADL Retraining, Functional Mobility, UE Funct Exercise/Act Treatment Duration: Sep 11, 2018 Frequency: 5 times per week Estimated Hrs Per Day: .5 hour per day Agreement: Yes Rehab Potential: Fair Time/GCodes Start Time: 13:50 Stop Time: 14:20 Total Time Billed (hr/min): 30 Billed Treatment Time 1, EVH x 15minutes, FA x 15minutes JONA GANDHI OT Aug 14, 2018 15:58
[2018-08-15] VITALS (14 sets, daily range): BP systolic 118–156; BP diastolic 54–79
[2018-08-15] MEDS: NS IV 1000 ML 1,000 ML IV SCH ×2 (00:54→15:22)
[2018-08-15 04:00] LABS: BASOPHILS % (AUTO) 0 % (0-10); EOSINOPHILS # (AUTO) 0.1 10^3/uL (0.0-0.3); EOSINOPHILS % (AUTO) 1 % (0-10); HEMATOCRIT 37 % (35-52); HEMOGLOBIN 12.3 G/DL (11.5-16.0); LYMPHOCYTES # (AUTO) 2.5 X 10^3 (1.0-4.0); LYMPHOCYTES % (AUTO) 28 % (12-44); MEAN CORPUSCULAR HEMOGLOBIN 30 PG (25-34); MEAN CORPUSCULAR HGB CONC 34 G/DL (32-36); MEAN CORPUSCULAR VOLUME 90 FL (80-99); MEAN PLATELET VOLUME 9.3 FL (7.4-10.4); MONOCYTES # (AUTO) 0.6 X 10^3 (0.0-1.0); MONOCYTES % (AUTO) 7 % (0-12); NEUTROPHILS # (AUTO) 5.9 X 10^3 (1.8-7.8); NEUTROPHILS % (AUTO) 64 % (42-75); PLATELET COUNT 210 10^3/uL (130-400); RED BLOOD COUNT 4.08 10^6/uL (4.35-5.85); WHITE BLOOD COUNT 9.2 10^3/uL (4.3-11.0)
[2018-08-15 04:27] LABS: ALANINE AMINOTRANSFERASE 13 U/L (0-55); ALKALINE PHOSPHATASE 96 U/L (40-136); BILIRUBIN,TOTAL 0.7 MG/DL (0.1-1.0); BUN/CREATININE RATIO 16; CALCIUM 9.3 MG/DL (8.5-10.1); CARBON DIOXIDE 21 MMOL/L (21-32); CHLORIDE 105 MMOL/L (98-107); CHOLESTEROL 239 MG/DL (< 200); GFR ESTIMATED > 60; GLUCOSE 101 MG/DL (70-105); HDL CHOLESTEROL 40 MG/DL (40-60); MAGNESIUM 1.4 MG/DL (1.8-2.4); PHOSPHORUS 4.2 MG/DL (2.3-4.7); POTASSIUM 3.7 MMOL/L (3.6-5.0); SODIUM 140 MMOL/L (135-145); TOTAL PROTEIN 6.5 GM/DL (6.4-8.2); TRIGLYCERIDES 252 MG/DL (<150); VLDL CHOLESTEROL 50 MG/DL (5-40)
[2018-08-15] MEDS ORDERED: POTASSIUM CL 10MEQ/50ML IVPB 100 ML IV ONE (04:48)
[2018-08-15] MEDS ORDERED: MAGNESIUM 1 GM/100 ML IVPB 200 ML IV ONE (04:48)
[2018-08-15] MEDS: MAGNESIUM 1 GM/100 ML IVPB 100 ML IV SCH ×2 (04:55→05:49)
[2018-08-15] MEDS ORDERED: KCL 20 MEQ TAB (K-DUR) PO SCH (06:00)
[2018-08-15] MEDS ORDERED: POTASSIUM CL 10MEQ/50ML IVPB 50 ML IV SCH (06:00)
[2018-08-15] MEDS ORDERED: MAGNESIUM 1 GM/100 ML IVPB 100 ML IV SCH (06:00)
--- NOTE | 2018-08-15 06:44 | Pulmonary Consultation ---
History of Present Illness History of Present Illness Date of Consultation 08/15/18 06:36 Time Seen by Provider: 06:36 Date of Admission History of Present Illness 72yo presented to ED yesterday with acute stoke symptoms. She was suddenly unable to move R arm and had slurred speech and R facial droop. Pt received TPA in the ED yesterday morning. Right arm and Right leg are still flaccid however her speech has improved. Allergies and Home Medications Allergies Coded Allergies: diphenhydramine (Unverified Allergy, Unknown, 04/25/14) Home Medications Allopurinol 300 Mg Tablet, 300 MG PO DAILY, (Reported) Ascorbic Acid 500 Mg Tablet, 1,500 MG PO DAILY, (Reported) Cholecalciferol (Vitamin D3) 1,000 Unit Capsule, 1,000 UNIT PO DAILY, (Reported) Colchicine 0.6 Mg Tablet, 0.6 MG PO UD PRN for GOUT PAIN, (Reported) Cyanocobalamin (Vitamin B-12) 1,000 Mcg Tablet, 1,000 MCG PO DAILY, (Reported) Fluticasone Propionate 9.9 Ml [place].susp, 2 SPRAY NS DAILY, (Reported) Glimepiride 2 Mg Tablet, 2 MG PO DAILY, (Reported) Lisinopril 5 Mg Tablet, 5 MG PO DAILY, (Reported) Metformin HCl 1,000 Mg Tablet, 1,000 MG PO BID WITH MEALS, (Reported) Montelukast Sodium 10 Mg Tablet, 10 MG PO HS PRN for ALLERGIES, (Reported) Nitroglycerin 0.4 Mg Tab.subl, 0.4 MG SL UD PRN for CHEST PAIN, (Reported) [place] 3 Polyunsat Fatty Acids 1,000 Mg Cap, 2,000 MG PO DAILY, (Reported) Spironolactone 50 Mg Tablet, 50 MG PO DAILY, (Reported) Past Ctftgwq-Catmqp-Ozteec Hx Past Med/Social Hx: Reviewed Nursing Past Med/Soc Hx Patient Social History Alcohol Use: Denies Use Recreational Drug Use: No Smoking Status: Never a Smoker Recent Foreign Travel: No Contact w/Someone Who Travel: No Recent Infectious Disease Expo: No Recent Hopitalizations: No Immunizations Up To Date Date of Pneumonia Vaccine: Jun 27, 2018 Date of Influenza Vaccine: Jun 27, 2018 Seasonal Allergies Seasonal Allergies: Yes Past Medical History Surgeries: Yes (BALLOON IN ARTERY, CATARACT) Respiratory: Yes Asthma Currently Using CPAP: No Currently Using BIPAP: No Cardiac: Yes Neurological: Yes Genitourinary: No Gastrointestinal: No Abdominal Hernia Musculoskeletal: No Endocrine: No Are Your Blood Sugars Over 250: No HEENT: Yes Cataract Hearing Impairment: Denies Cancer: No Psychosocial: No Integumentary: No Blood Disorders: No Family Medical History Reviewed Nursing Family Hx No Pertinent Family Hx Sepsis Event Evaluation Height, Weight, BMI Height: 5'3.00" Weight: 193lbs. 0.0oz. 87.243005ay; 34.2 BMI Method:Stated Exam Exam Vital Signs Date Time Temp Pulse Resp B/P (MAP) Pulse Ox O2 Delivery O2 Flow Rate FiO2 08/15/18 05:00 72 17 142/62 (88) 95 Room Air 08/15/18 04:00 65 15 133/54 (80) 90 Room Air 08/15/18 04:00 99 Room Air 08/15/18 03:00 73 12 135/65 (88) 95 Room Air 08/15/18 02:00 68 14 151/67 (95) 95 Room Air 08/15/18 01:00 67 08/15/18 01:00 67 14 118/58 (78) 93 Room Air 08/15/18 00:00 99 Room Air 08/15/18 00:00 61 14 123/60 (81) 94 Room Air 08/14/18 23:00 64 15 117/63 (81) 94 Room Air 08/14/18 22:00 64 14 124/59 (80) 95 Room Air 08/14/18 21:00 67 13 143/70 (94) 96 Room Air 08/14/18 20:00 99 Room Air 08/14/18 20:00 96.5 Room Air 08/14/18 20:00 66 16 134/72 (92) 95 Room Air 08/14/18 19:00 70 08/14/18 19:00 64 16 140/60 (86) 95 Room Air 08/14/18 18:00 79 23 186/98 (127) 94 Room Air 08/14/18 17:00 85 22 156/85 (108) 95 Room Air 08/14/18 16:00 80 19 139/74 (95) 96 Room Air 08/14/18 15:00 81 16 148/65 (92) 95 Room Air 08/14/18 14:00 79 15 146/63 (90) 94 Room Air 08/14/18 13:00 80 16 141/64 (89) 93 Room Air 08/14/18 13:00 80 08/14/18 12:00 80 25 143/100 (114) 96 Room Air 08/14/18 11:45 86 18 150/76 (100) 95 Room Air 08/14/18 11:30 84 22 130/95 (107) 95 Room Air 08/14/18 11:15 96 21 139/80 (99) 94 Room Air 08/14/18 11:00 93 19 156/66 (96) 93 Room Air 08/14/18 10:45 84 21 153/62 (92) 95 Room Air 08/14/18 10:39 81 08/14/18 10:30 88 23 153/68 (96) 92 Room Air 08/14/18 09:56 87 18 146/64 (91) 97 Nasal Cannula 2.00 08/14/18 09:09 87 18 172/81 98 08/14/18 08:19 88 18 156/64 98 08/14/18 08:14 Nasal Cannula 2.00 08/14/18 06:53 98.9 79 18 155/62 (93) 93 Room Air I & O 08/15/18 07:00 Intake Total 250 ml Output Total 2275 ml Balance -2025 ml Height & Weight Height: 5'3.00" Weight: 193lbs. 0.0oz. 87.326823sx; 34.2 BMI Method:Stated General Appearance: Other HEENT: PERRL/EOMI Neck: Normal Inspection Respiratory: Chest Non Tender, Lungs Clear, Normal Breath Sounds, No Accessory Muscle Use, No Respiratory Distress Cardiovascular: Regular Rate, Rhythm, No Edema, No Gallop, No JVD, No Murmur, Normal Peripheral Pulses Capillary Refill: Less Than 3 Seconds Gastrointestinal: non tender, soft Extremity: Normal Capillary Refill, Normal Inspection Neurologic/Psychiatric: Alert, Motor Weakness Skin: Normal Color, Warm/Dry Lymphatic: No Adenopathy Results Lab Laboratory Tests 08/14/18 06:57 08/15/18 03:30 Assessment/Plan Assessment/Plan 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 Atelectasis without hypoxia -IS -PT/OT increase activity Will transfer to 4th floor for further monitoring. It has been 24hrs since TPA was given. I am going to sign off please call with questions. ANTONINA KAPADIA DO Aug 15, 2018 06:44
[2018-08-15] MEDS: POTASSIUM CL 10MEQ/50ML IVPB 50 ML IV SCH ×2 (06:50→07:52)
--- NOTE | 2018-08-15 07:47 | Diagnostic Imaging Report ---
INDICATION: Weakness. COMPARISON: 08/14/2018. FINDINGS: Left basilar subsegmental atelectasis persist. However, there is improved aeration within the mid lung zones. No pleural effusion or pneumothorax. Normal heart size. Atherosclerotic aorta. IMPRESSION: Improved aeration within the lungs with a small amount of persistent left basilar atelectasis. Dictated by: Dictated on workstation # [id number]
--- NOTE | 2018-08-15 08:59 | Physical Therapy Daily Note ---
PT Daily Note-Current Subjective Patient awake in room visiting with family when PT arrived. Pt agreed to continue with therapy. Pain Numeric Pain Scale: 0-No Pain Location: No Pain Reported Appearance Patient in bed post tx with nurse call, phone, tray, family in the room. Mental Status Patient Orientation: [place], Normal For Age Attachments: [place] Catheter, IV Transfers Functional [place] Measure 0=Not Assessed/NA 4=Minimal Assistance 1=Total Assistance 5=Supervision or Setup 2=Maximal Assistance 6=Modified [place] 3=Moderate Assistance 7=Complete [place] IRFPAI Quality Coding Scale 6 Independent with activity with or without an assistive device 5 Patient requires set up or clean up by helper. Patient completes activity by themselves 4 Supervision or touching assist (CGA). [place] provide cues , steadying assist 3 The helper provides less than half the effort to complete the activity 2 The helper provides more than half the effort to complete the activity 1 Dependent. The helper does all the effort to complete an activity 7 Patient refused to complete or attempt activity 9 The patient did not perform the activity before the current illness or injury 88 Not attempted due to Medical conditions or safety concerns Transfers (B, C, W/C) (FIM): 1 Scootin Rollin Supine to/from Sit: 1 Sit to/from Stand: 2 Weight Bearing Right Lower Extremity: Right Full Weight Bearing Left Lower Extremity: Left Full Weight Bearing Exercises Seated Therapy Exercises: Kicking activity Seated Reps: 10 Treatments PROM of R LE while sitting bedside. Assessment Current Status: Fair Progress Pt is dependent assistance for bed mobility and transfers. Patient taken through PROM for R LE and active quad extension and ankle pumps with L LE.while sitting at EOB. Patient was max assist in transfer from Sit/Stand, she stood 3 times. Adilene was left with call light, guard rails up and all belongings when PT left room. PT Short Term Goals Short Term Goals Time Frame: Aug 17, 2018 Transfers (B,C,W/C) (FIM): 4 Gait (FIM): 1 Distance (FIM): 1=up to 49 ft Gait Distance Comment: 5' Gait Level of Assist: 2 Gait Assistive Device: FWW PT Logistical Engineer Goals Long-Term Goals PT Long-Term Goals Time Frame: Aug 24, 2018 Transfers (B,C,W/C) (FIM): 4 Gait (FIM): 2 Gait distance (FIM): 9=760-74 ft Distance: 50' Gait Level of Assist: 4 Gait Assistive Device: FWW PT Plan Problem List Problem List: Activity Tolerance, Functional Strength, Safety, Balance, Gait, Transfer, Bed Mobility, ROM Treatment/Plan Treatment Plan: Continue Plan of Care Treatment Plan: Bed Mobility, Education, Functional Activity Mary, Functional Strength, Gait, Safety, Therapeutic Exercise, Transfers Treatment Duration: Aug 24, 2018 Frequency: 11 times per week Estimated Hrs Per Day: .5 hour per day Patient and/or Family Agrees t: Yes Safety Risks/Education Patient Education: Transfer Techniques, Correct Positioning, Safety Issues Teaching Recipient: Patient Teaching Methods: Demonstration, Discussion Response to Teaching: Reinforcement Needed Time/GCodes Time In: 815 Time Out: 830 Total Billed Treatment Time: 15 Total Billed Treatment 1 Visit FA - 15' RADHA EUBANKS PT Aug 15, 2018 08:59
--- NOTE | 2018-08-15 09:51 | Diagnostic Imaging Report ---
CLINICAL INDICATION: Patient 24 hours post TPA. EXAM: Axial CT scan of brain performed without IV contrast. COMPARISON: CT angiogram of the head/neck dated 08/14/2018. FINDINGS: There is interval evolution of a small acute cerebral infarct involving the posterior left basal ganglia/posterior left subinsular region which extends to the left frontal lobe nieto radiata. There is no evidence of intracranial hemorrhage, brain herniation, or midline shift. The remainder of the brain has normal fisher-white matter distinction. The brain parenchymal volume appears appropriate for patient's age. There is no hydrocephalus. Basal cisterns are unremarkable. The extracranial soft tissue, skull, and orbits are unremarkable. There is mild mucosal thickening involving the ethmoid sinus. Temporal bone structures show no significant abnormality. IMPRESSION: 1: Interval development of a small acute cerebral infarct involving the left basal ganglia/posterior left subinsular region with extension into the posterior left frontal lobe nieto radiata. There is no evidence of intraparenchymal hemorrhage or brain herniation. 2: The remainder of the brain parenchyma is stable. Dictated by: Dictated on workstation # [id number]
--- NOTE | 2018-08-15 10:13 | Speech Therapy Daily Note ---
Speech Daily Progress Note Subjective Date Seen by Provider: Aug 15, 2018 Time Seen by Provider: 00:15 Patient pleasant and cooperative. Objective Patient seen for skilled dysphagia with modified diet of mechanical soft and thin liquids. No s/s of aspiration noted this date. Patient oral intake is good. Treatment Plan Continue Plan of Care Speech Short Term Goals Short Term Goals Short Term Goals 1) The patient will follow compensatory strategies for safe PO intake, reduce globus sensation and increase swallow onset. 2) The patient will tolerate mechanical soft diet with no s/s of aspiration/ penetration. Speech Behavioral Assistant Goals Correction Goals The patient will maintain adequate nutrition/hydration via safe, effective swallow function. Speech-Plan Patient/Family Goals Patient/Family Goals: Patient will return home with family once she is able. Treatment Plan Speech Therapy Treatment Plan: Continue Plan of Care Patient's oral intake is good. She did state she doesn't have much of an appetite. Treatment Duration: Aug 15, 2018 Frequency: 5 times per week Estimated Hrs Per Day: .5 hour per day Rehab Potential: Fair Barriers to Learning: Patient is a recent CVA. Pt/Family Agrees to Plan: Yes Safety Risks/Education Teaching Recipient: Patient, Family Teaching Methods: Discussion Response to Teaching: Verbalize Understanding, Return Demonstration Education Topics Provided: Safety of oral intake strategies. Time Speech Therapy Time In: 09:45 Speech Therapy Time Out: 10:00 Total Billed Time: 15 Billed Treatment Time 1PA[address] Aug 15, 2018 10:13
--- NOTE | 2018-08-15 10:58 | Progress Note-Hospitalist ---
DEBBIE WALTON DO 08/15/18 1058: Subjective HPI/CC On Admission Date Seen by Provider: Aug 15, 2018 Time Seen by Provider: 10:30 The patient is rather remarkably impaired with regard to speech. She arrived at the emergency room early this morning with a history of being up at about 0 530 cleaning house. She noted the acute onset of right-sided weakness. It became clear that her speech was involved as well she was brought to the emergency room. She was well within the window. Some difficulties were encountered with our outsource sitting of CT reports. Dr. Christian concluded there was no evidence of bleeding and TPA was administered. An area on the scans suggested a subacute injury. She is now in the ICU bed. She is alert and her speech is quite garbled. Subjective/Events-last exam Patient was moved from ICU to 4th floor Had a BM this morning Drinking and eating better Right sided weakness requires maximum assist IRF consult will await to see if she has any function to recover then will consider admit PCP Dr Brantley Review of Systems Neurological: Weakness, Numbness, Incoordination Objective Exam Vital Signs Vital Signs Date Time Temp Pulse Resp B/P (MAP) Pulse Ox O2 Delivery O2 Flow Rate FiO2 08/15/18 19:14 96.9 65 20 130/56 (80) 92 Room Air 08/14/18 09:56 2.00 Capillary Refill : Less Than 3 Seconds General Appearance: No Apparent Distress, WD/WN, Chronically ill HEENT: Other (facial droop) Neck: Full Range of Motion, Normal Inspection, Non Tender, Supple, Carotid Bruit Respiratory: Chest Non Tender, Lungs Clear, Normal Breath Sounds, No Accessory Muscle Use, No Respiratory Distress Cardiovascular: Regular Rate, Rhythm, No Edema, No Gallop, No JVD, No Murmur, Normal Peripheral Pulses Neurologic/Psychiatric: Alert, Oriented x3, Depressed Affect, Facial Droop, Motor Weakness Results/Procedures Lab Laboratory Tests 08/15/18 03:30 Patient resulted labs reviewed. Assessment/Plan Assessment and Plan Assess & Plan/Chief Complaint Assessment: Subacute CVA with severe deficit Plan: IRF if able to regain some function May need NHP Diagnosis/Problems Diagnosis/Problems (1) Infarction of temporal lobe Status: Acute (2) Facial droop due to stroke Status: Acute (3) Hemiparesis, right Status: Acute (4) Cerebrovascular accident due to cerebral artery occlusion Status: Acute (5) CAD (coronary artery disease) Status: Chronic Qualifiers: Coronary Disease-Associated Artery/Lesion type: [place] artery [place] vs. transplanted heart: [place] heart Associated angina: with stable angina Qualified Codes: I25.118 - Atherosclerotic heart disease of [place] coronary artery with other forms of angina pectoris (6) Diabetes mellitus Status: Chronic Qualifiers: Diabetes mellitus type: type 2 Diabetes mellitus [facility] insulin use: without [facility] use Diabetes mellitus complication status: with circulatory complication Diabetes mellitus complication detail: with other circulatory complications Qualified Codes: E11.59 - Type 2 diabetes mellitus with other circulatory complications (7) Gout Status: Chronic Qualifiers: Gout site: unspecified site Gout etiology: unspecified cause Chronicity: unspecified Qualified Codes: M10.9 - Gout, unspecified (8) Hypertension Status: Chronic Qualifiers: Hypertension type: essential hypertension Qualified Codes: I10 - Essential (primary) hypertension (9) Hyperlipidemia Status: Chronic Qualifiers: Hyperlipidemia type: mixed hyperlipidemia Qualified Codes: E78.2 - Mixed hyperlipidemia Clinical Quality Measures DVT/VTE Risk/Contraindication: Risk Factor Score Per Nursin RFS Level Per Nursing on Admit: 4+=Very High Stroke: Date of last known well: Aug 14, 2018 ELAYNE KELLEY MED STUDENT 08/15/18 1407: Subjective Subjective/Events-last exam Patient is currently not in pain She is very difficult to understand She has no movement with either right extremities Objective Exam General Appearance: No Apparent Distress, WD/WN Respiratory: Chest Non Tender, Lungs Clear, Normal Breath Sounds, No Accessory Muscle Use, No Respiratory Distress Cardiovascular: Regular Rate, Rhythm, No Edema, No Gallop, No JVD, No Murmur Neurologic/Psychiatric: Alert, Oriented x3, Facial Droop, Motor Weakness Skin: Normal Color, Warm/Dry Assessment/Plan Assessment and Plan Assess & Plan/Chief Complaint Assessment: 1) CVA Plan: 1) Inpatient observation 2) Physical rehabilitation 3) Occupational rehabilitation 4) Speech therapy DEBBIE WALTON DO Aug 15, 2018 10:58 ELAYNE KELLEY MED STUDENT Aug 15, 2018 14:07
--- NOTE | 2018-08-15 13:51 | Occupational Ther Daily Note ---
OT Current Status-Daily Note Subjective Pt lying in bed, alert. Family present in room. Pt agrees to therapy. Mental Status/Objective Patient Orientation: Person, Non-Verbal/Aphasic Functional [place] Measure 0=Not Assessed/NA 4=Minimal Assistance 1=Total Assistance 5=Supervision or Setup 2=Maximal Assistance 6=Modified [place] 3=Moderate Assistance 7=Complete [place] Attachments: IV Other Treatment PROM to R UE. Attempted muscle facilitation with bicep, no active movement noted. Educated pt on self ROM. Completed 1 set 10 reps of 2 self ROM exercises. After therapy, pt lying in bed with call light/phone in reach. All needs met in room. Education OT Patient Education: Exercise program Teaching Recipient: Patient, Family Teaching Methods: Demonstration, Discussion Response to Teaching: Return Demonstration, Reinforcement Needed OT Short Term Goals Short Term Goals Time Frame: Aug 28, 2018 Eating(FIM): 3 Grooming(FIM): 3 Bathing(FIM): 3 Upper Body Dressing(FIM): 3 Lower Body Dressing(FIM): 3 Toileting(FIM): 4 Transfers (B,C,W/C) (FIM): 4 Toilet/Commode Transfer(FIM): 4 Shower Transfer(FIM): 3 Additional Short Term Goals: 1-Demonstrate ADL Tasks, 2-Verbalize Understanding , 3-ImproveStrength/Mary 1=Demonstrate adherence to instructed precautions during ADL tasks. 2=Patient will verbalize/demonstrate understanding of assistive devices/ modifications for ADL. 3=Patient will improve strength/tolerance for activity to enable patient to perform ADL's. OT Prison Goals Power Transmission Engineer Goals Time Frame: Sep 11, 2018 Eating (FIM): 5 Grooming(FIM): 5 Bathing(FIM): 4 Upper Body Dressing(FIM): 5 Lower Body Dressing(FIM): 4 Toileting(FIM): 5 Transfers (B,C,W/C) (FIM): 5 Toilet/Commode Transfer(FIM): 5 Shower Transfer(FIM): 4 Additional Goals: 1-Demonstrate ADL Tasks, 2-Verbalize Understanding, 3- ImproveStrength/Mary 1=Demonstrate adherence to instructed precautions during ADL tasks. 2=Patient will verbalize/demonstrate understanding of assistive devices/ modifications for ADL. 3=Patient will improve strength/tolerance for activity to enable patient to perform ADL's. OT Education/Plan Discharge Recommendations Plan/Recommendations: Continue POC Treatment Plan/Plan of Care Patient would benefit from OT for education, treatment and training to promote independence in ADL's, mobility, safety and/or upper extremity function for ADL' s. Plan of Care: ADL Retraining, Functional Mobility, UE Funct Exercise/Act Treatment Duration: Sep 11, 2018 Frequency: 5 times per week Estimated Hrs Per Day: .5 hour per day Agreement: Yes Rehab Potential: Fair Time/GCodes Start Time: 13:30 Stop Time: 13:45 Total Time Billed (hr/min): 15 Billed Treatment Time 1 visit-NM 1 (15 min) OLY BARAJAS Aug 15, 2018 13:51
--- NOTE | 2018-08-15 15:26 | Physical Therapy Daily Note ---
PT Daily Note-Current Subjective Pt awake in bed visiting with family when PT entered room. Pt agreed to therapy. Pain Numeric Pain Scale: 0-No Pain Location: No Pain Reported Mental Status Patient Orientation: Unable to Assess, [place] Attachments: [place] Catheter, IV Transfers Functional [place] Measure 0=Not Assessed/NA 4=Minimal Assistance 1=Total Assistance 5=Supervision or Setup 2=Maximal Assistance 6=Modified [place] 3=Moderate Assistance 7=Complete [place] IRFPAI Quality Coding Scale 6 Independent with activity with or without an assistive device 5 Patient requires set up or clean up by helper. Patient completes activity by themselves 4 Supervision or touching assist (CGA). [place] provide cues , steadying assist 3 The helper provides less than half the effort to complete the activity 2 The helper provides more than half the effort to complete the activity 1 Dependent. The helper does all the effort to complete an activity 7 Patient refused to complete or attempt activity 9 The patient did not perform the activity before the current illness or injury 88 Not attempted due to Medical conditions or safety concerns Transfers (B, C, W/C) (FIM): 1 Scootin Rollin Supine to/from Sit: 2 Sit to/from Stand: 2 Weight Bearing Right Lower Extremity: Right Full Weight Bearing Left Lower Extremity: Left Full Weight Bearing Exercises Seated Therapy Exercises: Kicking activity Standing: Sit to Stand Standing Reps: 3 Assessment Current Status: Poor Progress Patient requires max assistance to sit at EOB. Patient performed active kicking with L LE while sitting. PT went through PROM for R LE due to patient still having flaccid symptoms in extremity. Adilene is Max A in standing and uses back of legs against bed to help provide her leverage. She will continue therapy to maintain current level of function. PT Short Term Goals Short Term Goals Time Frame: Aug 17, 2018 Transfers (B,C,W/C) (FIM): 4 Gait (FIM): 1 Distance (FIM): 1=up to 49 ft Gait Distance Comment: 5' Gait Level of Assist: 2 Gait Assistive Device: FWW PT Cigar Tobacco Rehandler Goals Mcc Goals PT Mcc Goals Time Frame: Aug 24, 2018 Transfers (B,C,W/C) (FIM): 4 Gait (FIM): 2 Gait distance (FIM): 9=354-20 ft Distance: 50' Gait Level of Assist: 4 Gait Assistive Device: FWW PT Plan Problem List Problem List: Activity Tolerance, Functional Strength, Safety, Balance, Gait, Transfer, Bed Mobility, ROM Treatment/Plan Treatment Plan: Continue Plan of Care Treatment Plan: Bed Mobility, Education, Functional Activity Mary, Functional Strength, Gait, Safety, Therapeutic Exercise, Transfers Treatment Duration: Aug 24, 2018 Frequency: 11 times per week Estimated Hrs Per Day: .25 hour per day Patient and/or Family Agrees t: Yes Safety Risks/Education Patient Education: Transfer Techniques, Correct Positioning, Safety Issues Teaching Recipient: Patient Teaching Methods: Demonstration, Discussion Response to Teaching: Reinforcement Needed Time/GCodes Time In: 1500 Time Out: 1517 Total Billed Treatment Time: 17 Total Billed Treatment 1 Visit FA - 17' RADHA EUBANKS PT Aug 15, 2018 15:26
[2018-08-15] MEDS ORDERED: DOCUSATE SODIUM 100 MG (COLACE) CAP PO PRN (20:30)
[2018-08-15] MEDS ORDERED: NON-FORMULARY MEDICATION 1 EA EA (Montelukast Sodium (Singulair) 10 MG) PO PRN (20:30)
[2018-08-15] MEDS ORDERED: CALCIUM CARBONATE 500 MG (TUMS) TAB.CHEW PO PRN (20:30)
[2018-08-15] MEDS ORDERED: MONTELUKAST 10 MG (SINGULAIR) TAB PO PRN (20:30)
[2018-08-15] MEDS ORDERED: ALPRAZolam 0.25 MG (XANAX) TAB PO PRN (20:30)
[2018-08-15] MEDS: inSUlin ASPART (NovoLOG) 1 UNIT/0.01 ML (CHARGE PER UNIT) SC SCH (20:45)
[2018-08-15] MEDS ORDERED: ATORVASTATIN 10 MG (LIPITOR) TABLET PO SCH (21:00)
[2018-08-16] VITALS: BP 140/63
[2018-08-16 03:57] LABS: BASOPHILS % (AUTO) 0 % (0-10); EOSINOPHILS # (AUTO) 0.1 10^3/uL (0.0-0.3); EOSINOPHILS % (AUTO) 1 % (0-10); HEMATOCRIT 36 % (35-52); LYMPHOCYTES # (AUTO) 2.1 X 10^3 (1.0-4.0); LYMPHOCYTES % (AUTO) 26 % (12-44); MEAN CORPUSCULAR HEMOGLOBIN 31 PG (25-34); MEAN CORPUSCULAR HGB CONC 33 G/DL (32-36); MEAN CORPUSCULAR VOLUME 91 FL (80-99); MEAN PLATELET VOLUME 9.4 FL (7.4-10.4); MONOCYTES # (AUTO) 0.5 X 10^3 (0.0-1.0); MONOCYTES % (AUTO) 6 % (0-12); NEUTROPHILS # (AUTO) 5.3 X 10^3 (1.8-7.8); NEUTROPHILS % (AUTO) 66 % (42-75); PLATELET COUNT 198 10^3/uL (130-400); RED BLOOD COUNT 3.94 10^6/uL (4.35-5.85); RED CELL DISTRIBUTION WIDTH 13.7 % (10.0-14.5)
[2018-08-16 04:00] VITALS: BP 139/64
[2018-08-16 04:12] LABS: BUN/CREATININE RATIO 14; CALCIUM 9.2 MG/DL (8.5-10.1); CARBON DIOXIDE 21 MMOL/L (21-32); CHLORIDE 107 MMOL/L (98-107); CREATININE SERUM 0.78 MG/DL (0.60-1.30); GFR ESTIMATED > 60; GLUCOSE 120 MG/DL (70-105); MAGNESIUM 1.7 MG/DL (1.8-2.4); PHOSPHORUS 3.8 MG/DL (2.3-4.7); POTASSIUM 4.1 MMOL/L (3.6-5.0); SODIUM 140 MMOL/L (135-145)
[2018-08-16] MEDS: NS IV 1000 ML 1,000 ML IV SCH ×2 (04:30→17:35)
[2018-08-16] MEDS: inSUlin ASPART (NovoLOG) 1 UNIT/0.01 ML (CHARGE PER UNIT) SC SCH ×4 (05:21→21:06)
[2018-08-16] MEDS: GLIMEPIRIDE 2 MG (AMARYL) TAB PO SCH (06:14)
[2018-08-16 08:00] VITALS: BP 150/69
[2018-08-16] MEDS: lisINopril 5 MG (PRINIVIL) TABLET PO SCH (08:14)
[2018-08-16] MEDS: ALLOPURINOL 300 MG (ZYLOPRIM) TAB PO SCH (08:14)
[2018-08-16] MEDS: FLUTICASONE NASAL SPRAY (FLONASE) 16 GM BTL NS SCH (08:14)
[2018-08-16] MEDS ORDERED: NON-FORMULARY MEDICATION 1 EA EA (Fluticasone Propionate (Flonase Allergy Relief) 2 SPRAY) NS SCH (09:00)
[2018-08-16] MEDS ORDERED: NON-FORMULARY MEDICATION 1 EA EA (Allopurinol 300 MG) PO SCH (09:00)
--- NOTE | 2018-08-16 09:59 | Progress Note-Hospitalist ---
Subjective HPI/CC On Admission Date Seen by Provider: Aug 16, 2018 Time Seen by Provider: 09:00 The patient is rather remarkably impaired with regard to speech. She arrived at the emergency room early this morning with a history of being up at about 0 530 cleaning house. She noted the acute onset of right-sided weakness. It became clear that her speech was involved as well she was brought to the emergency room. She was well within the window. Some difficulties were encountered with our outsource sitting of CT reports. Dr. Christian concluded there was no evidence of bleeding and TPA was administered. An area on the scans suggested a subacute injury. She is now in the ICU bed. She is alert and her speech is quite garbled. Subjective/Events-last exam Patient cannot tolerate MRIs so that order was canceled since it would not provide us any new information Devastating stroke shows minimal chance of recovery Aphasia and word finding difficulty and right-sided hemiparesis precludes anything but a poor prognosis IRF not an option. NHP pending Review of Systems Neurological: Weakness Objective Exam Vital Signs Vital Signs Date Time Temp Pulse Resp B/P (MAP) Pulse Ox O2 Delivery O2 Flow Rate FiO2 08/16/18 08:00 96.2 67 20 150/69 (96) 94 Room Air 08/14/18 09:56 2.00 Capillary Refill : Less Than 3 Seconds General Appearance: No Apparent Distress, WD/WN, Chronically ill Respiratory: Chest Non Tender, Lungs Clear, Normal Breath Sounds, No Accessory Muscle Use, No Respiratory Distress Cardiovascular: Regular Rate, Rhythm, No Edema, No Gallop, No JVD, No Murmur, Normal Peripheral Pulses Neurologic/Psychiatric: Alert, Oriented x3, Normal Mood/Affect, Motor Weakness (right) Results/Procedures Lab Laboratory Tests 08/16/18 03:25 Patient resulted labs reviewed. 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 transplanted heart: [place] heart Associated angina: with stable angina Qualified Codes: I25.118 - Atherosclerotic heart disease of [place] coronary artery with other forms of angina pectoris (6) Diabetes mellitus Status: Chronic Qualifiers: Diabetes mellitus type: type 2 Diabetes mellitus snf insulin use: without snf use Diabetes mellitus complication status: with circulatory complication Diabetes mellitus complication detail: with other circulatory complications Qualified Codes: E11.59 - Type 2 diabetes mellitus with other circulatory complications (7) Gout Status: Chronic Qualifiers: Gout site: unspecified site Gout etiology: unspecified cause Chronicity: unspecified Qualified Codes: M10.9 - Gout, unspecified (8) Hypertension Status: Chronic Qualifiers: Hypertension type: essential hypertension Qualified Codes: I10 - Essential (primary) hypertension (9) Hyperlipidemia Status: Chronic Qualifiers: Hyperlipidemia type: mixed hyperlipidemia Qualified Codes: E78.2 - Mixed hyperlipidemia Clinical Quality Measures DVT/VTE Risk/Contraindication: Risk Factor Score Per Nursin RFS Level Per Nursing on Admit: 4+=Very High Stroke: Date of last known well: Aug 14, 2018 DEBBIE WALTON DO Aug 16, 2018 09:59
--- NOTE | 2018-08-16 10:11 | Occupational Ther Daily Note ---
OT Current Status-Daily Note Subjective Pt alert, sitting in recliner. Pt agrees to therapy. Mental Status/Objective Patient Orientation: Person, Non-Verbal/Aphasic Functional [place] Measure 0=Not Assessed/NA 4=Minimal Assistance 1=Total Assistance 5=Supervision or Setup 2=Maximal Assistance 6=Modified [place] 3=Moderate Assistance 7=Complete [place] Attachments: [place] Catheter, IV ADL-Treatment Sponge bath in sitting. Pt assist donning/doffing hospital gown. Attempted doffing socks. Assist with donning/doffing socks. No muscle movement R UE. After therapy, pt sitting in recliner with call light/phone in reach. Family in room. All needs met in room. Bathing (FIM): 1 (Pt able to reach and grasp then wring out wash cloth. Pt able to wash R UE, upper body and upper legs. Assist x2 to stand then cleanse buttocks/deepika area. Pt attempted to reach feet, decrease sitting balance reaching forward.) Bathing Location: R Arm, L Upper Leg, R Upper Leg, Chest, Abdomen OT Short Term Goals Short Term Goals Time Frame: Aug 28, 2018 Eating(FIM): 3 Grooming(FIM): 3 Bathing(FIM): 3 Upper Body Dressing(FIM): 3 Lower Body Dressing(FIM): 3 Toileting(FIM): 4 Transfers (B,C,W/C) (FIM): 4 Toilet/Commode Transfer(FIM): 4 Shower Transfer(FIM): 3 Additional Short Term Goals: 1-Demonstrate ADL Tasks, 2-Verbalize Understanding , 3-ImproveStrength/Mary 1=Demonstrate adherence to instructed precautions during ADL tasks. 2=Patient will verbalize/demonstrate understanding of assistive devices/ modifications for ADL. 3=Patient will improve strength/tolerance for activity to enable patient to perform ADL's. OT Insurance Sales Professional Goals Nursing Home Goals Time Frame: Sep 11, 2018 Eating (FIM): 5 Grooming(FIM): 5 Bathing(FIM): 4 Upper Body Dressing(FIM): 5 Lower Body Dressing(FIM): 4 Toileting(FIM): 5 Transfers (B,C,W/C) (FIM): 5 Toilet/Commode Transfer(FIM): 5 Shower Transfer(FIM): 4 Additional Goals: 1-Demonstrate ADL Tasks, 2-Verbalize Understanding, 3- ImproveStrength/Mary 1=Demonstrate adherence to instructed precautions during ADL tasks. 2=Patient will verbalize/demonstrate understanding of assistive devices/ modifications for ADL. 3=Patient will improve strength/tolerance for activity to enable patient to perform ADL's. OT Education/Plan Discharge Recommendations Plan/Recommendations: Continue POC Treatment Plan/Plan of Care Patient would benefit from OT for education, treatment and training to promote independence in ADL's, mobility, safety and/or upper extremity function for ADL' s. Plan of Care: ADL Retraining, Functional Mobility, UE Funct Exercise/Act Treatment Duration: Sep 11, 2018 Frequency: 5 times per week Estimated Hrs Per Day: .5 hour per day Agreement: Yes Rehab Potential: Fair Time/GCodes Start Time: 09:29 Stop Time: 09:58 Total Time Billed (hr/min): 29 Billed Treatment Time 1 visit-ADL 2 (29 min) OLY BARAJAS Aug 16, 2018 10:11
--- NOTE | 2018-08-16 11:22 | Physical Therapy Daily Note ---
PT Daily Note-Current Subjective Patient in recliner pre tx, agrees to PT, no complaints of pain. Patient indicates that she would like to continue to sit in the chair after treatment. Appearance Patient in recliner post tx with nurse call, phone, tray, all needs met. Mental Status Patient Orientation: Person, Unable to Assess, Non-Verbal/Aphasic Attachments: IV Transfers Functional [place] Measure 0=Not Assessed/NA 4=Minimal Assistance 1=Total Assistance 5=Supervision or Setup 2=Maximal Assistance 6=Modified [place] 3=Moderate Assistance 7=Complete [place] IRFPAI Quality Coding Scale 6 Independent with activity with or without an assistive device 5 Patient requires set up or clean up by helper. Patient completes activity by themselves 4 Supervision or touching assist (CGA). [place] provide cues , steadying assist 3 The helper provides less than half the effort to complete the activity 2 The helper provides more than half the effort to complete the activity 1 Dependent. The helper does all the effort to complete an activity 7 Patient refused to complete or attempt activity 9 The patient did not perform the activity before the current illness or injury 88 Not attempted due to Medical conditions or safety concerns Sit to/from Stand: 4 Patient performs sit to stand with min assist, cues for hand placement. Needs assist weight shifting to the left, leans to the right. Patient was able to stand x2 for a couple of minutes each time. Weight Bearing Right Lower Extremity: Right Full Weight Bearing Left Lower Extremity: Left Full Weight Bearing Exercises PROM right knee and ankle and hip while seated. Treatments sit to stand, PROM Assessment Current Status: Fair Progress improved sit to stand but right side continues to be flaccid PT Short Term Goals Short Term Goals Time Frame: Aug 17, 2018 Transfers (B,C,W/C) (FIM): 4 Gait (FIM): 1 Distance (FIM): 1=up to 49 ft Gait Distance Comment: 5' Gait Level of Assist: 2 Gait Assistive Device: FWW PT Member Services Representative Goals Halfway Goals PT Member Services Representative Goals Time Frame: Aug 24, 2018 Transfers (B,C,W/C) (FIM): 4 Gait (FIM): 2 Gait distance (FIM): 3=957-23 ft Distance: 50' Gait Level of Assist: 4 Gait Assistive Device: FWW PT Plan Problem List Problem List: Activity Tolerance, Functional Strength, Safety, Balance, Gait, Transfer, Bed Mobility, ROM Treatment/Plan Treatment Plan: Continue Plan of Care Treatment Plan: Bed Mobility, Education, Functional Activity Mary, Functional Strength, Gait, Safety, Therapeutic Exercise, Transfers Treatment Duration: Aug 24, 2018 Frequency: 11 times per week Estimated Hrs Per Day: .25 hour per day Patient and/or Family Agrees t: Yes Safety Risks/Education Patient Education: Transfer Techniques, Correct Positioning, Safety Issues Teaching Recipient: Patient Teaching Methods: Demonstration, Discussion Response to Teaching: Reinforcement Needed Time/GCodes Time In: 1103 Time Out: 1118 Total Billed Treatment Time: 15 Total Billed Treatment 1 visit FA 15' RADHA EUBANKS PT Aug 16, 2018 11:22
[2018-08-16 12:00] VITALS: BP 162/73
--- NOTE | 2018-08-16 13:27 | Speech Therapy Daily Note ---
Speech Daily Progress Note Subjective Date Seen by Provider: Aug 16, 2018 Time Seen by Provider: 00:30 Patient awake and alert. She was sitting up in her recliner with her present. Objective Patient is eating her current diet without s/s of aspiration. Patient completed OME with decreased ROM, strength and coordination with the R side. Treatment Plan Continue Plan of Care Speech Short Term Goals Short Term Goals Short Term Goals 1) The patient will follow compensatory strategies for safe PO intake, reduce globus sensation and increase swallow onset. 2) The patient will tolerate mechanical soft diet with no s/s of aspiration/ penetration. Speech Pattern Technician Goals Shelter Goals The patient will maintain adequate nutrition/hydration via safe, effective swallow function. Speech-Plan Patient/Family Goals Patient/Family Goals: Patient plans to return home with her family as soon as she is able. Treatment Plan Speech Therapy Treatment Plan: Continue Plan of Care Patient's speech and swallow is improving with exercises and compensatory strategies. Treatment Duration: Aug 15, 2018 Frequency: 5 times per week Estimated Hrs Per Day: .5 hour per day Rehab Potential: Fair Barriers to Learning: Patient has mild decrease in memory and cognition. Pt/Family Agrees to Plan: Yes Safety Risks/Education Teaching Recipient: Patient, Family Teaching Methods: Demonstration, Discussion Response to Teaching: Verbalize Understanding, Return Demonstration Education Topics Provided: Compensatory strategies for safety of oral intake. Time Speech Therapy Time In: 12:25 Speech Therapy Time Out: 12:45 Total Billed Time: 20 Billed Treatment Time 1, JORGE, MARY Mccloud Aug 16, 2018 13:27
--- NOTE | 2018-08-16 14:25 | Physical Therapy Daily Note ---
PT Daily Note-Current Subjective Agrees to PT. Reports she did sit up in the chair for 3 hours today. Transfers Functional [place] Measure 0=Not Assessed/NA 4=Minimal Assistance 1=Total Assistance 5=Supervision or Setup 2=Maximal Assistance 6=Modified [place] 3=Moderate Assistance 7=Complete [place] IRFPAI Quality Coding Scale 6 Independent with activity with or without an assistive device 5 Patient requires set up or clean up by helper. Patient completes activity by themselves 4 Supervision or touching assist (CGA). [place] provide cues , steadying assist 3 The helper provides less than half the effort to complete the activity 2 The helper provides more than half the effort to complete the activity 1 Dependent. The helper does all the effort to complete an activity 7 Patient refused to complete or attempt activity 9 The patient did not perform the activity before the current illness or injury 88 Not attempted due to Medical conditions or safety concerns Transfers (B, C, W/C) (FIM): 1 Scootin Rollin Supine to/from Sit: 2 (total assist with right side, pt able to assist with her left side. ) Sit to/from Stand: 4 (min assist to come to a stand and min assist to maintain. Assist to keep right UE on walker. ) sit to stand x 3. stood approx 1 min each time. min assist for balance. Weight Bearing Right Lower Extremity: Right Full Weight Bearing Left Lower Extremity: Left Full Weight Bearing Treatments Transfers and standing. In bed post treatment with needs met. Assessment Pt is cooperative and cognitively intact. Able to follow cues; initiates movement and activity. PT Short Term Goals Short Term Goals Time Frame: Aug 17, 2018 Transfers (B,C,W/C) (FIM): 4 Gait (FIM): 1 Distance (FIM): 1=up to 49 ft Gait Distance Comment: 5' Gait Level of Assist: 2 Gait Assistive Device: FWW PT Residential Goals Residential Goals PT Home Extension Agent Goals Time Frame: Aug 24, 2018 Transfers (B,C,W/C) (FIM): 4 Gait (FIM): 2 Gait distance (FIM): 4=034-08 ft Distance: 50' Gait Level of Assist: 4 Gait Assistive Device: FWW PT Plan Problem List Problem List: Activity Tolerance, Functional Strength, Safety, Balance, Gait, Transfer, Bed Mobility Treatment/Plan Treatment Plan: Continue Plan of Care Treatment Plan: Bed Mobility, Education, Functional Activity Mary, Functional Strength, Gait, Safety, Therapeutic Exercise, Transfers Treatment Duration: Aug 24, 2018 Frequency: 11 times per week Estimated Hrs Per Day: .25 hour per day Patient and/or Family Agrees t: Yes Safety Risks/Education Patient Education: Transfer Techniques, Safety Issues Teaching Recipient: Patient Teaching Methods: Demonstration, Discussion Response to Teaching: Reinforcement Needed Time/GCodes Time In: 1400 Time Out: 1423 Total Billed Treatment Time: 23 Total Billed Treatment visit FA 23 OLY DERAS PT Aug 16, 2018 14:25
[2018-08-16 15:11] VITALS: BP 126/60
[2018-08-16] MEDS: ACETAMINOPHEN 325 MG TABLET PO PRN (16:07)
[2018-08-16 19:35] VITALS: BP 156/72
[2018-08-17 00:05] VITALS: BP 140/63
[2018-08-17 04:16] VITALS: BP 159/69
[2018-08-17 06:03] LABS: BASOPHILS % (AUTO) 0 % (0-10); EOSINOPHILS # (AUTO) 0.1 10^3/uL (0.0-0.3); EOSINOPHILS % (AUTO) 1 % (0-10); HEMATOCRIT 38 % (35-52); HEMOGLOBIN 12.5 G/DL (11.5-16.0); LYMPHOCYTES # (AUTO) 2.3 X 10^3 (1.0-4.0); LYMPHOCYTES % (AUTO) 26 % (12-44); MEAN CORPUSCULAR HEMOGLOBIN 30 PG (25-34); MEAN CORPUSCULAR HGB CONC 33 G/DL (32-36); MEAN CORPUSCULAR VOLUME 91 FL (80-99); MEAN PLATELET VOLUME 9.6 FL (7.4-10.4); MONOCYTES # (AUTO) 0.5 X 10^3 (0.0-1.0); MONOCYTES % (AUTO) 6 % (0-12); NEUTROPHILS # (AUTO) 5.8 X 10^3 (1.8-7.8); NEUTROPHILS % (AUTO) 67 % (42-75); PLATELET COUNT 208 10^3/uL (130-400); RED BLOOD COUNT 4.15 10^6/uL (4.35-5.85); RED CELL DISTRIBUTION WIDTH 14.1 % (10.0-14.5); WHITE BLOOD COUNT 8.7 10^3/uL (4.3-11.0)
[2018-08-17] MEDS: inSUlin ASPART (NovoLOG) 1 UNIT/0.01 ML (CHARGE PER UNIT) SC SCH ×2 (06:06→11:57)
[2018-08-17] MEDS: GLIMEPIRIDE 2 MG (AMARYL) TAB PO SCH (06:06)
[2018-08-17] MEDS: NS IV 1000 ML 1,000 ML IV SCH (06:06)
[2018-08-17 06:15] LABS: BUN/CREATININE RATIO 13; CALCIUM 9.6 MG/DL (8.5-10.1); CARBON DIOXIDE 21 MMOL/L (21-32); CHLORIDE 107 MMOL/L (98-107); CREATININE SERUM 0.82 MG/DL (0.60-1.30); GFR ESTIMATED > 60; GLUCOSE 116 MG/DL (70-105); MAGNESIUM 1.7 MG/DL (1.8-2.4); PHOSPHORUS 4.3 MG/DL (2.3-4.7); SODIUM 140 MMOL/L (135-145)
[2018-08-17 08:00] VITALS: BP 180/81
[2018-08-17] MEDS: ACETAMINOPHEN 325 MG TABLET PO PRN (08:16)
[2018-08-17] MEDS: FLUTICASONE NASAL SPRAY (FLONASE) 16 GM BTL NS SCH (08:16)
[2018-08-17] MEDS: lisINopril 5 MG (PRINIVIL) TABLET PO SCH (08:16)
[2018-08-17] MEDS: ALLOPURINOL 300 MG (ZYLOPRIM) TAB PO SCH (08:16)
[2018-08-17] MEDS ORDERED: ASPI-586 PO (08:34)
--- NOTE | 2018-08-17 08:38 | Discharge Inst-Skilled Nursing ---
Discharge Inst-Skilled NF Patient Instructions Patient Problems: Severe stroke with right sided paresis DM HTN HLP intolerant to statins Goal: Increase independence in ADL's to possibly go home Consult/Follow Up/Orders Follow Up Appt.: Dr Shani Brantley is PCP Skilled NF Admit to: [facility] Certification (SNF) I certify that SNF services are required to be given on an inpatient basis because of the above named patient's need for halfway care on a continuing basis for the conditions(s) for which he/she was receiving inpatient hospital services prior to his/her transfer to the SNF. Correction Facility Order: Nursing Services, Bevel Polisher-Evaluate & Treat, Physical Therapy-Evaluate & Treat, Speech Language-Evaluate & Treat Discharge Diet: ADA Diet, Cardiac Diet, Other Diet Daily Activity as Tolerated: Yes New & Resume Previous Orders Tran Eugene Aug 17, 2018 08:36 TRAN EUGENE DO Aug 17, 2018 08:38
--- NOTE | 2018-08-17 08:40 | Discharge Summary-Hospitalist ---
Diagnosis/Chief Complaint Date of Admission Aug 14, 2018 at 09:50 Date of Discharge Discharge Date: Aug 17, 2018 Admission Diagnosis CVA with right-sided hemiparesis and speech deficit Discharge Diagnosis (1) Infarction of temporal lobe Status: Acute (2) Facial droop due to stroke Status: Acute (3) Hemiparesis, right Status: Acute (4) Cerebrovascular accident due to cerebral artery occlusion Status: Acute (5) CAD (coronary artery disease) Status: Chronic (6) Diabetes mellitus Status: Chronic (7) Gout Status: Chronic (8) Hypertension Status: Chronic (9) Hyperlipidemia Status: Chronic Discharge Summary Discharge Physical Exam Allergies: Coded Allergies: atorvastatin (Verified Allergy, Unknown, 08/15/18) diphenhydramine (Unverified Allergy, Unknown, 04/25/14) Vitals & I&Os Vital Signs Date Time Temp Pulse Resp B/P (MAP) Pulse Ox O2 Delivery O2 Flow Rate FiO2 08/17/18 13:51 62 18 150/69 94 Room Air 2.00 08/17/18 12:00 97.5 General Appearance: No Apparent Distress, WD/WN, Chronically ill, Obese Respiratory: Chest Non Tender, Lungs Clear, Normal Breath Sounds, No Accessory Muscle Use, No Respiratory Distress Cardiovascular: Regular Rate, Rhythm, No Edema, No Gallop, No JVD, No Murmur, Normal Peripheral Pulses Neurologic/Psychiatric: Alert, Oriented x3, Normal Mood/Affect, Motor Weakness Hospital Course Hospital course: patient was admitted after receiving tpa in ER after CVA w/u revealed extensive stroke involving the temporal lobe in a devastating manner. She did not recover any right sided strength and was supported with therapies and deemed a NH candidate. PCP Dr Brantley was updated and she was admitted to [facility] for skilled care. Poor prognosis intermediate. Labs (last 24 hrs) Microbiology 08/14/18 MRSA Screen - Final, Complete MRSA not isolated Patient resulted labs reviewed. Pending Labs Discussion & Recommendations Discharge Planning: <30 minutes discharge planning Discharge Home Medications: Active Scripts Active Aspir 81 (Aspirin) 81 Mg Tablet. 81 Mg PO DAILY 365 Days Reported Colchicine 0.6 Mg Tablet 0.6 Mg PO UD PRN Flonase Allergy Relief (Fluticasone Propionate) 9.9 Ml Axis.susp 2 Axis NS DAILY Singulair (Montelukast Sodium) 10 Mg Tablet 10 Mg PO HS PRN Lisinopril 5 Mg Tablet 5 Mg PO DAILY Glimepiride 2 Mg Tablet 2 Mg PO DAILY Allopurinol 300 Mg Tablet 300 Mg PO DAILY Metformin HCl 1,000 Mg Tablet 1,000 Mg PO BID WITH MEALS Spironolactone 50 Mg Tablet 50 Mg PO DAILY Vitamin D3 (Cholecalciferol (Vitamin D3)) 1,000 Unit Capsule 1,000 Unit PO DAILY Ascorbic Acid 500 Mg Tablet 1,500 Mg PO DAILY B-12 (Cyanocobalamin (Vitamin B-12)) 1,000 Mcg Tablet 1,000 Mcg PO DAILY Fish Oil 1,000 mg Capsule ([place] 3 Polyunsat Fatty Acids) 1,000 Mg Cap 2,000 Mg PO DAILY Nitroglycerin 0.4 Mg Tab.subl 0.4 Mg SL UD PRN Instructions to patient/family Please see electronic discharge instructions given to patient. Clinical Quality Measures DVT/VTE Risk/Contraindication: Risk Factor Score Per Nursin RFS Level Per Nursing on Admit: 4+=Very High Stroke: Date of last known well: Aug 14, 2018 Problem Qualifiers (1) CAD (coronary artery disease): Coronary Disease-Associated Artery/Lesion type: [place] artery [place] vs. transplanted heart: [place] heart Associated angina: with stable angina Qualified Codes: I25.118 - Atherosclerotic heart disease of [place] coronary artery with other forms of angina pectoris (2) Diabetes mellitus: Diabetes mellitus type: type 2 Diabetes mellitus intermediate insulin use: without technician terminal and repeater use Diabetes mellitus complication status: with circulatory complication Diabetes mellitus complication detail: with other circulatory complications Qualified Codes: E11.59 - Type 2 diabetes mellitus with other circulatory complications (3) Gout: Gout site: unspecified site Gout etiology: unspecified cause Chronicity: unspecified Qualified Codes: M10.9 - Gout, unspecified (4) Hypertension: Hypertension type: essential hypertension Qualified Codes: I10 - Essential ( primary) hypertension (5) Hyperlipidemia: Hyperlipidemia type: mixed hyperlipidemia Qualified Codes: E78.2 - Mixed hyperlipidemia DEBBIE WALTON DO Aug 17, 2018 08:40
[2018-08-17] MEDS ORDERED: ASPIRIN 81 MG CHEW (CHILDREN'S ASA) PO NR (08:45)
[2018-08-17] MEDS ORDERED: ASPIRIN 325 MG (5 GR) TABLET PO NR (08:45)
--- NOTE | 2018-08-17 11:33 | Physical Therapy Daily Note ---
PT Daily Note-Current Subjective Patient in bed pre tx, agrees to PT, no complaints of pain. Patient's speech seems slightly better, she was able to communicate that her right leg feels numb but her right arm doesn't. Appearance Patient BTB post tx with nurse call, phone, tray, all needs met. Mental Status Patient Orientation: Person, Unable to Assess, Non-Verbal/Aphasic Attachments: IV Transfers Therapy Code Descriptions/Definitions Functional [place] Measure: 0=Not Assessed/NA 4=Minimal Assistance 1=Total Assistance 5=Supervision or Setup 2=Maximal Assistance 6=Modified [place] 3=Moderate Assistance 7=Complete [place] Therapy Quality Codes: 6 Independent with activity with or without an assistive device 5 Patient requires set up or clean up by helper. Patient completes activity by themselves 4 Supervision or touching assist (CGA). [place] provide cues , steadying assist 3 The helper provides less than half the effort to complete the activity 2 The helper provides more than half the effort to complete the activity 1 Dependent. The helper does all the effort to complete an activity 7 Patient refused to complete or attempt activity 9 The patient did not perform the activity before the current illness or injury 88 Not attempted due to Medical conditions or safety concerns Transfers (B, C, W/C) (FIM): 4 Scootin Rollin Supine to/from Sit: 4 Sit to/from Stand: 4 Patient min assist with bed mobility, supine to sit, sit to stand. Needs cues for hand placement when standing. Patient stood twice for about 3 minutes each time. She tried weight shifting and needed min assist to keep balance. Right leg is not able to bear weight at this time. Weight Bearing Right Lower Extremity: Right Full Weight Bearing Left Lower Extremity: Left Full Weight Bearing Gait Training Gait (FIM): 1 Distance: 3' Gait Level of Assist: 3 Gait Persons Needed: 1 Gait Assistive Device: Handheld Assist Patient took a few steps sideways toward the head of the bed with mod assist from therapist, she needed assist to keep right knee from buckling and to actually move right leg for stepping. Exercises Seated ROM of right knee and ankle with encouragement for patient to participate but she could not assist. Treatments bed mobility, standing, ROM, sidestepping Assessment Current Status: Poor Progress some progress with bed mobility and transfers PT Short Term Goals Short Term Goals Time Frame: Aug 17, 2018 Transfers (B,C,W/C) (FIM): 4 Gait (FIM): 1 Distance (FIM): 1=up to 49 ft Gait Distance Comment: 5' Gait Level of Assist: 2 Gait Assistive Device: FWW PT Senior Living Goals Senior Living Goals PT Supervisor Farm Equipment Maintenance Goals Time Frame: Aug 24, 2018 Transfers (B,C,W/C) (FIM): 4 Gait (FIM): 2 Gait distance (FIM): 8=468-22 ft Distance: 50' Gait Level of Assist: 4 Gait Assistive Device: FWW PT Plan Problem List Problem List: Activity Tolerance, Functional Strength, Safety, Balance, Gait, Transfer, Bed Mobility, ROM Treatment/Plan Treatment Plan: Continue Plan of Care Treatment Plan: Bed Mobility, Education, Functional Activity Mary, Functional Strength, Gait, Safety, Therapeutic Exercise, Transfers Treatment Duration: Aug 24, 2018 Frequency: 11 times per week Estimated Hrs Per Day: .25 hour per day Patient and/or Family Agrees t: Yes Safety Risks/Education Patient Education: Gait Training, Transfer Techniques, Correct Positioning, Safety Issues Teaching Recipient: Patient Teaching Methods: Demonstration, Discussion Response to Teaching: Reinforcement Needed Time/GCodes Time In: 1107 Time Out: 1125 Total Billed Treatment Time: 18 Total Billed Treatment 1 visit FA 18' RADHA EUBANKS PT Aug 17, 2018 11:33
[2018-08-17 12:00] VITALS: BP 150/69
--- NOTE | 2018-08-17 13:21 | Speech Therapy Daily Note ---
Speech Daily Progress Note Subjective Date Seen by Provider: Aug 17, 2018 Time Seen by Provider: 00:15 Patient was sitting up in bed with son and present. Objective Patient completed OME as directed with verbal and visual cues with 70% accuracy. Treatment Plan Continue Plan of Care Speech Short Term Goals Short Term Goals Short Term Goals 1) The patient will follow compensatory strategies for safe PO intake, reduce globus sensation and increase swallow onset. 2) The patient will tolerate mechanical soft diet with no s/s of aspiration/ penetration. Speech Contact Lens Molder Goals Contact Lens Molder Goals The patient will maintain adequate nutrition/hydration via safe, effective swallow function. Speech-Plan Patient/Family Goals Patient/Family Goals: Patient is being discharged to [facility] this afternoon for rehab. Treatment Plan Speech Therapy Treatment Plan: Continue Plan of Care Patient has progressed with safe oral intake. Speech production has slightly improved. Treatment Duration: Aug 15, 2018 Frequency: 5 times per week Estimated Hrs Per Day: .5 hour per day Rehab Potential: Fair Barriers to Learning: Patient has had a recent CVA with oral motor weakness. Pt/Family Agrees to Plan: Yes Safety Risks/Education Teaching Recipient: Patient, Family, Significant Other Teaching Methods: Discussion Response to Teaching: Verbalize Understanding Education Topics Provided: Safety with oral intake. Time Speech Therapy Time In: 12:30 Speech Therapy Time Out: 12:45 Total Billed Time: 15 Billed Treatment Time 1, MARY Mccloud Aug 17, 2018 13:21
[2018-08-17 13:51] VITALS: BP 150/69
[2018-08-18] MEDS ORDERED: ASPIRIN 81 MG CHEW (CHILDREN'S ASA) PO SCH (09:00)
== END 2018-08-17 13:40 | DRG 62 ==
LOC: EDUNIT# 06:53 → ER 06:54 → ICU 09:50 → 4TH 08-15 10:20
PROVIDERS: ADMIT Internal Medicine; ATTEND Internal Medicine
DX: I63.50 Cerebral infarction due to unspecified occlusion or stenosis of unspecified cerebral artery (principal); G81.91 Hemiplegia, unspecified affecting right dominant side; R29.810 Facial weakness; R47.81 Slurred speech; J45.909 Unspecified asthma, uncomplicated; I25.118 Atherosclerotic heart disease of native coronary artery with other forms of angina pectoris; E11.59 Type 2 diabetes mellitus with other circulatory complications; M10.9 Gout, unspecified; I10 Essential (primary) hypertension; E78.2 Mixed hyperlipidemia; Z79.84 Long term (current) use of oral hypoglycemic drugs
CPT/HCPCS: 36415; 51702; 70450; 70496; 70498; 71045; 80048; 80053; 80061; 81000; 82962; 83735; 84100; 84484; 85025; 85379; 85610; 85730; 87081; 92977; 93005; 93041; 93306; 96361; 96365; 99291

== ENCOUNTER 2019-11-08 10:14 | Outpatient (RCR) | payer MEDICARE, OTHER ==
[~2019-11-08 10:14] MED LIST changes: +ALLO300T2 PO; +ASCO500T7 PO; +ASPI-586 PO; +CHOL10007 PO; +COLC0.6T56 PO; +CYAN100088 PO; +FLUT9.9S NS; +GLIM2TAB4 PO; +LISI-556 PO; +METF-399 PO; +MONT10TA21 PO; +NITR0.4T42 SL; +SPIR50TA4 PO
== END 2019-11-21 09:35 | disposition home or self-care (01) ==
PROVIDERS: ATTEND Family Medicine
DX: I69.30 Unspecified sequelae of cerebral infarction (principal)